=== PATIENT | female | born 1995 | race Caucasian/White ===

== ENCOUNTER 2025-01-25 17:37 | Emergency (ER) | payer OTHER, SELFPAY ==
[2025-01-25] VITALS (38 sets, daily range): BP systolic 94–119; BP diastolic 57–85; PULSE 73–125; RESP 11–21; TEMP 36.4; O2SAT 100
--- OUTSIDE RECORDS SUMMARY | 2025-01-25 17:39 | XMS_ITS | Encounter Summary ---
Author Organization [facility] Healthcare Address [address] [place] [address] Care Team Providers Care Engine Lathe Set Up Operator Name Role Phone Lynda Perez Unavailable Unavailable Lynda Perez Unavailable Unavailable Wild Avila MD Primary Care Provider [phone] Jessica Her Unavailable Unavailable Encounter Details Date Type Department Care Team (Late st Contact Info) Description 11/02/2020 [facility] Outreach [facility] Warm Hand Off Program [address] [place], [place] [phone] [place], [place] Social History Tobacco Use Types Packs/Day Years Used Date Smoking Tobacco: Every Day Cigarettes Smokeless Tobacco: Never Alcohol Use Standard Drinks/Week Comments Yes 0 (1 standard drink = 0.6 oz pur e alcohol) a [employer] AUDIT-C Answer Date Recorded Q1: How often do you have a drink containing alcohol? 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 Author MAT General Jessica Giraldo Note: Pt is scheduled with on 10/15/20 to receive vivitrol injection if criteria is met. Pt missed appointment on this date. Made contact 02/25/21. Improve your coping skills Lifestyle No Jessica Her Note: I am attending outpatient at [facility] and going to meetings. documented as of this encounter Visit Diagnoses Not on filedocumented in this encounter Care Teams Engine Lathe Set Up Operator Relationship Specialty Start Date End Date [place] [address] PCP - General Family Medicine 10/05/20 Lynda Perez Program Director [facility] 05/11/20 Lynda Perez Metal Reclamation Kettle Tender Addiction Medicine 06/23/20 Jessica Her Program Director [facility] 10/15/20 documented as of this encounter
--- OUTSIDE RECORDS SUMMARY | 2025-01-25 17:39 | XMS_ITS | Patient Health Record ---
Author Organization [facility] Address [address] [address] Care Team Providers Care Highway Research Engineer Name Role Phone Kareem Tuttle Unavailable [phone] Reason For Referral No Information Medications Medication SIG (Take, Route, Frequency, Duration) Notes Start Date End Date Status Naproxen 500 MG Oral Acti ve Fluticasone Propionate Diskus 50 MCG/ACT Inhalation *Reorder from [facility] for eRx and Interaction Alerts* Active traZODone HCl 100 MG Oral Active Buprenorphine HCl-Naloxone HCl 8-2 MG Sublingual Active Sertraline HCl 50 MG Oral Active traZODone HCl 150 MG Oral Active Sulfamethoxazole-Trim ethoprim 800-160 MG Oral Active Plan Of Treatment No Information
--- OUTSIDE RECORDS SUMMARY | 2025-01-25 17:39 | XMS_ITS | Clinical Summary ---
Author Organization [facility] Address [address] [place] [address] Care Team Providers Care Staff Command And Control Officer Name Role Phone Wild Avila MD Primary Care Provider [phone] Allergies No known active allergies Family History Medical History Relation Comments Diabetes Maternal Grandfather Thyroid Disease Mother Relation Status Comments Maternal Grandfather Mother Social History Tobacco Use Types Packs/Day Years Used Date Smoking Tobacco: Every Day Cigarettes Smokeless Tobacco: Never Tobacco Cessation:Ready to Q uit: Not Asked; Counseling Given: Not Answered Alcohol Use Standard Drinks/Week Comments Not Currently 0 (1 standard drink = 0.6 oz pur e alcohol) Comments No Sex and Gender Information Value Date Recorded Sex Assigned at Not on file Legal Sex Female 1:59 PM CDT Gender Identity Not on file Sexual Orientation Not on file Last Filed Vital Signs Vital Sign Reading Time Taken Comments Blood Pressure 112/76 10/25/2022 2:01 PM CDT Pulse 60 10/25/2022 2:01 PM CDT Temperature 36.9 C (98.5 F) 10/25/2022 2:01 PM CDT Respiratory Rate 16 10/25/2022 2:01 PM CDT Oxygen Saturation 97% 10/25/2022 2:01 PM CDT Inhaled Oxygen Concentration - - Weight 60 kg (132 lb 4.4 oz) 10/25/2022 2:01 PM CDT Height 165.1 cm (5' 5) 10/25/2022 2:01 PM CDT Body Mass Index 22.01 10/25/2022 2:01 PM CDT Plan of Treatment Health Maintenance Due Date Last Done Comments Cervical Cancer Screening Pap Smear (Age 30 to 64) Every 3 Years 1994 Annual Physical 1997 DTaP, Tdap and Td Vaccines (6 - Tdap) 09/23/2006 09/22/2006, 06/13/2001, 04/10/2001, Additional history exists Hepatitis C 2012 Pneumococcal Vaccine: Pediatrics (0 to 5 Years) and At-Risk Patients (6 to 49 Years) (1 of 2 - PCV) 2013 06/13/2001, 04/10/2001, 02/13/2001 HPV Vaccines (1 - 3-dose SCDM series) 2021 COVID-19 Vaccine ( - season) 2024 Cervical Cancer Screening Pap with HPV Testing (Age 30 to 64) Every 5 Years 2024 Cervical Cancer Screening with HPV 2024 Hepatitis B Vaccines Completed 04/10/2001, 07/07/1995, 01/16/1995, Additional history exists Meningococcal Vaccine Aged Out 02/22/2007 No alessia yoseph eligible based on patient's age to complete this topic Meningococcal B Vaccine Aged Out No l onger eligible based on patient's age to complete this topic RSV Immunizations Under 20 Months Aged Out No longer eligible based on patient's age to complete this topic Insurance NOHEMY Care Teams Staff Command And Control Officer Relationship Specialty Start Date End [place] [address] PCP - General FAMILY PRACTICE 10/25/22
--- OUTSIDE RECORDS SUMMARY | 2025-01-25 17:39 | XMS_ITS | Clinical Summary ---
Author Organization [facility] Address [address] [place] [address] Care Team Providers Care Service Captain Name Role Phone Lynda Perez Unavailable Unavailable Lynda Perez Unavailable Unavailable Wild Avila MD Primary Care Provider [phone] Jessica Her Unavailable Unavailable Allergies No known active allergies Medications gabapentin (NEURONTIN) 300 mg capsule TAKE 1 CAPSULE(300 MG) BY MOUTH THREE TIMES DAILY 90 capsule 2 3 Active hydrOXYzine (ATARAX) 25 mg tablet TAKE 1 TABLET(25 MG) BY MOUTH THREE TIMES DAILY 90 tablet 1 4 Active QUEtiapine (SEROquel) 100 mg tablet Take 1 tablet (100 mg total) by mouth nightly 90 tablet 3 4 Active QUEtiapine (SEROquel) 50 mg tablet Take 1 tablet (50 mg total) by mouth nightly 30 tablet 2 4 Active benztropine (COGENTIN) 1 mg tablet TAKE 1 TABLET(1 MG) BY MOUTH EVERY NIGHT 90 tablet 4 Active sertraline (ZOLOFT) 100 mg tablet Take 1 tablet (100 mg total) by mouth daily 90 tablet 1 5 Active Suboxone 8-[address] 1 Film under the tongue 2 (two) times a day for 15 days 30 Film 5 Active ondansetron (ZOFRAN) 4 mg tablet Take 1 tablet (4 mg total) by mouth every 8 (eight) hours as needed for nausea or vomiting 20 tablet 1 2 01/19/20 25 Discontinu ed(Therapy completed) Active Problems Problem Noted Date Diagnosed Date Polysubstance abuse 01/18/2025 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 Depression 05/29/2023 Assessment & Plan (12/29/2023 4:24 PM CDT): Stable, well controlled, patient reports no major depression, has multiple stressors Continue sertraline 25 mg daily, Seroquel 150 mg nightly Alcohol use 12/22/2020 Assessment & Plan (07/18/2024 12:51 PM ROLLED HAM LACER): Has been improving, decreased use, decreased ability to go out, has been drinking some, some limitations given availability of alcohol even [place]; continue to work on cessation Assessment & Plan (01/27/2022 4:47 PM CDT): Stable, improving; patient reports she has been drinking less alcohol; has been to mutual support meetings; currently cannot go due to COVID-19 infection Will continue to monitor encourage further support Assessment & Plan (01/12/2022 4:56 PM CDT): Improving; patient reports she is drinking less, mg morning checks, no longer has 1st morning drink Encouraged patient continue to work toward stool cessation Will continue Vivitrol for opioid use and alcohol use disorders Assessment & Plan (08/02/2021 4:41 PM ROLLED HAM LACER): Stable improving; patient reports that she is drinking less; now down to 1-2 drinks per day Continue gabapentin 300 mg t.i.d. Assessment & Plan (12/22/2020 1:29 PM CDT): High risk alcohol use; drinks 6-7 days per week; has some shakes in morning -continue to address alcohol use at future visits Recurrent major depressive disorder, in partial remission 10/19/2020 Assessment & Plan (07/18/2024 12:51 PM ROLLED HAM LACER): Patient reports anxiety and depression are present never fully goes away, has been worsening, and varies day-to-day Can increase sertraline to 100 mg daily, continue Seroquel 150 mg nightly Assessment & Plan (01/12/2022 4:57 PM CDT): Not well controlled, patient reports mood continues to be up and down Continue Lexapro 20 mg daily; hydroxyzine 25 mg p.r.n. for anxiety Encouraged patient to gauge [employer] for counseling Assessment & Plan (08/02/2021 4:41 PM ROLLED HAM LACER): Not well controlled, patient continues to have depression and mood changes Continue Lexapro 20 mg daily Assessment & Plan (11/11/2020 11:55 AM CDT): Stable, not well controlled but is improving Has recurrence stressors such as in the family, Patient to continue on Lexapro 10 mg at this time Assessment & Plan (10/19/2020 9:33 AM CDT): S son dysthymia, however no sense of hopelessness or suicidal thoughts Will continue Lexapro from previous Start trazodone at bedtime for sleep Chronic hepatitis C without hepatic coma 021 Moderate opioid use disorder 09/17/2019 Assessment & Plan (07/18/2024 12:51 PM ROLLED HAM LACER): Patient has change in environment, living [place] with boyfriend; has decreased symptoms when in [place], some difficulty when returns to the area she has friends and region Last use was around [place], prior had been sober for almost 2 months Has cravings when not on Suboxone Continue Suboxone 8 mg b.i.d. Assessment & Plan (12/29/2023 4:23 PM CDT): Stable, improving; patient reports had long duration sobriety; recently had mild relapse, last use was about 1 week ago Patient reports good relief with Suboxone Continue Suboxone 8 mg b.i.d.; encouraged patient to engage with peer literacy specialist or individual counseling to help with long-term treatment goals Assessment & Plan (01/27/2022 4:46 PM CDT): Stable, improving; patient reports no use of any opioids in over a month Continue naltrexone monthly injections Patient is due in approximately 2 weeks Encouraged patient to do to engage with counseling through peer literacy specialist Encouraged patient to engage with mutual support groups Assessment & Plan (01/12/2022 4:56 PM CDT): Able, improving; patient reports no use of fentanyl in the past 2 weeks Patient is interested giving Vivitrol injection today Provide Vivitrol today; encouraged patient to follow-up in 2 weeks for evaluation and response to therapy Assessment & Plan (08/02/2021 4:40 PM ROLLED HAM LACER): Not well control, continues to use opioids; last use approximately 48 hours ago Counseled patient that Vivitrol shot given at least 7 days after last opioid use in order to reduce risk of precipitated withdrawals Patient to schedule nursing visit mid next week for Vivitrol injection Assessment & Plan (03/23/2021 3:02 PM CDT): Stable, not well controlled Patient would like to continue with Vivitrol, has been using Vicodin other substances recently Discussed with patient other levels of care in order to better control her opioid in substance use disorders At this time patient is not ready to visit residential facilities Will continue to monitor encourage long-term changes for patient Assessment & Plan (12/22/2020 1:26 PM CDT): Patient is doing well, tolerating Vivitrol well; responds well -no use of opioids; has used cocaine and amphetamines since last visit Assessment & Plan (11/11/2020 11:55 AM CDT): Improving, not well controlled Patient is greatly reduced her recent use, however issues to few times in recent weeks Patient is going to NA meetings as well as IOP at [facility] Patient is instructed Vivitrol, will give tomorrow to allow patient does 7 days since last use of fentanyl Follow-up in 1 week to evaluate response to therapy as well as ensure no side effects from injection Assessment & Plan (10/19/2020 9:32 AM CDT): Stable, patient reports she has been trying not to use Had difficulty with boxes in the past, over used medications and would occasionally withdraw from medicine Patient also verses other substances including cocaine Xanax and better means as well as regular alcohol use Has history of 0 D's Patient is currently in IOP at [facility] Patient desires Adderall, will order Vivitrol medication today with plan to administer in 1 week Sinus tachycardia 09/17/2019 Assessment & Plan (08/02/2021 4:42 PM ROLLED HAM LACER): Continues to have episodes tachycardia, palpitations as well as feeling short of breath Today heart rate is 122 Unclear if due to acute withdrawal versus of cardiac arrhythmia Will follow-up in 2 weeks to evaluate heart weight in heart rhythm with patient is no longer actively withdrawing Fatty liver Elevated LFTs Resolved Problems Problem Noted Date Diagnosed Date Resolved Date Opiate withdrawal 06/29/2023 12/29/2023 Leucocytosis 06/29/2023 12/29/2023 Alcohol dependence with withdrawal 05/29/2023 12/29/2023 Opioid dependence with withdrawal 05/01/2023 12/29/2023 COVID-19 01/25/2022 12/29/2023 Sepsis due to Escherichia co li without acute organ dysfunction 11/18/2021 12/29/2023 Sepsis 01/21/2021 12/29/2023 Hypokalemia 01/21/2021 12/29/2023 Polysubstance abuse 01/21/2021 12/29/19 Assessment & Plan (11/25/2022 4:11 PM CDT): Patient continues to have difficulties with substance use disorder; recently completed inpatient treatment, was on Suboxone; would like to transition back to Vivitrol Encouraged patient to discontinue Suboxone x7 days before initiating Vivitrol Encouraged patient to engage with peer literacy specialist for individual counseling Assessment & Plan (01/12/2022 4:57 PM CDT): 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 continues to use methamphetamine; patient is engaging with outpatient IOP a [facility] Encouraged patient to engage with [employer]ER[employer]IVER as well as peer literacy specialist to help with further support and long-term strategies Pyelonephritis 01/20/2021 12/29/2023 Assessment & Plan (01/27/2022 4:48 PM CDT): Patient recently seen in hospital for pyelonephritis; given 3 doses of ceftriaxone upon hospital, left AMA patient had previous episode of pyelonephritis nephritis and October 2021 Refer to urology for recurrent pyelonephritis Start Omnicef 300 mg b.i.d. to complete 7 day course of treatment SIRS (systemic inflammatory response syndrome) 09/17/2019 10/19/2020 Elevated d-dimer 09/17/2019 12/29/2023 Transaminitis 12/29/2023 Encounters Date Type Department Care Team Description 01/19/2025 Documentation [facility] Warm Hand Off Program [address], [place] [phone] Kailey Caro 01/18/2025 2:22 PM CDT - 01/20/2025 4:27 PM CDT Hospital Encounter [facility] IMU [address] [place] [address] Louis Timmons MD Sargsyan, Narine, MD Fasick, Victoria Rose, Polysubstance abuse (HCC) (Primary Dx); Alcohol use Discharge Disposition: Left Against Medical Advice 01/16/2025 11:30 AM CDT Hospital Encounter [facility] Medical Care [address] [place] [address] Paula Morris MD 01/13/2025 [facility] Initial Eligibility [facility] Warm Hand Off Program [address], [place] [phone] Milton Randall from Last 3 Months Immunizations Immunization Administration Dates Next Due DTaP 06/13/2001, 1,02/13/2001,12/21,04/19/1996,07/07/1995,04/12/1995 ,02/14/1995 Hep A, Adult 12/24/2008 Hep A, Pediatric 12/24/2008 Hep B / HiB 04/10/2001 Hep B, Adolescent or Pediatric 07/07/1995,1994,1994 HiB 02/13/2001 Hib (PRP-OMP) 04/19/1996 IPV 06/13/2001, 1,02/13/2001,12/21,07/07/1995,04/12/1995,02/14/1995 Influenza, Trivalent, IM (MDV) 04/03/2005 Influenza, Unspecified 07/16/2024(Deferr ed: Patient Refused),09/11/2023(Deferred: Patient Refused),06/12/2023(Deferred: Patient Refused),04/12/2023(Deferred: Patient Refused),04/11/2023(Deferred: Patient Refused),04/02/2022(Deferred: Patient Refused),07/30/2021(Deferred: Patient Refused),04/02/2021(Deferred: Patient Refused),07/03/2020(Deferred: Patient Refused),07/03/2020(Deferred: Patient Refused),07/03/2020(Deferred: Patient Refused),07/03/2020(Deferred: Patient Refused),07/03/2020(Deferred: Patient Refused),07/03/2020(Deferred: Patient Refused),07/03/2020(Deferred: Patient Refused),07/03/2019(Deferred: Patient Refused),07/03/2019(Deferred: Patient Refused),07/03/2019(Deferred: Patient Refused),07/03/2019(Deferred: Patient Refused),07/03/2019(Deferred: Patient Refused),07/03/2019(Deferred: Patient Refused) MMR 11/25/2016,12/21/1998,12/19/1995 Meningococcal MCV4P (Menactra) 02/22/2007 Meningococcal Polysaccharide (Menomune) 02/22/2007 PPD TEST 12/24/2008,02/13/2001 Pneumococcal Conjugate 7-Valent 06/13/2001,04/10,02/13/2001 Rho (D) Immune Globulin, IV or IM 11/25/2016,04/2017,09/21/2016 Td, adsorbed 09/22/2006 Varicella 12/24/2008,02/22/2007 Surgical History Surgery Date Site/Laterality Comments TONSILLECTOMY Tonsillectomy SECTION 10/31/2016 - 11/30/2016 OTHER SURGICAL HISTORY 07/03/2016 - 07/02/2017 had a laproscopy to check her uterus Medical History Medical History Date Comments Hx Other Medical 1997 tubes in ears; Comments: [facility] 10/07/2014 - Hx Other Medical 1998 tonsillectomy; Comments: [facility] 10/07/2014 - Hx Other Medical 1999 tympanoplasty; Comments: [facility] 10/07/2014 - Fibroid uterus SIRS (systemic inflammatory response syndrome) ([facility]) 09/17/2019 Family History Medical History Relation Name Comments No Known Problems Brother No Known Problems Father Graves' disease Mother daly quiroz Hypertension Mother daly quiroz Breast cancer Mother's Sister Ovarian cancer Paternal Grandmother No Known Problems Sister Relation Name Status Comments Brother Alive Father Alive Mother daly quiroz Alive Mother's Sister Paternal Grandmother Sister Alive Social History Tobacco Use Types Packs/Day Years Used Date Smoking Tobacco: Every Day Cigarettes 0.9 10.7 Started: 05/2014 Smokeless Tobacco: Never Tobacco Cessation:Ready to Q uit: Not Asked; Counseling Given: Not Answered Alcohol Use Standard Drinks/Week Comments Yes 0 (1 standard drink = 0.6 oz pur e alcohol) a [employer] [facility] Utilities Answer Date Recorded In the past 12 months has [employer], gas, oil, or water [employer] threatened to shut off services in your home? No 06/30/2023 Social Connection and Isolation Panel [NHANES] A nswer Date Recorded In a typical week, how many times do you talk on the phone with family, friends, or neighbors? Three times a week 06/30/2023 How often do you get togethe r with friends or relatives? Three times a week 06/30/2023 How often do you attend chur ch or cheondoism services? Never 06/30/2023 Do you belong to any clubs o r organizations such as episcopal groups, unions, fraternal or athletic groups, or school groups? No 06/30/2023 How often do you attend meet ings of the clubs or organizations you belong to? Never 06/30/2023 Are you , , di vorced, , never , or living with a partner? Never 06/30/2023 AUDIT-C Answer Date Recorded Q1: How often do you have a drink containing alcohol? 4 or more times a week 06/29/2023 Q2: How many drinks containi ng alcohol do you have on a typical day when you are drinking? 7 to 9 Q3: How often do you have si x or more drinks on one occasion? Daily or almost daily 06/29/2023 Overall Financial Resource Strain (CARDIA) Answe r Date Recorded How hard is it for you to pa y for the very basics like food, housing, medical care, and heating? Very hard 06/30/2023 PHQ-2 Answer Date Recorded PHQ-2 Total Score (If total score is 3 or more points, staff should administer the PHQ-9) 0 12/29/2023 Hunger Vital Sign Answer Date Recorded Within the past 12 months, y ou worried that your food would run out before you got the money to buy more. Never true 06/30/20 23 Within the past 12 months, t he food you bought just didn't last and you didn't have money to get more. Never true 06/30/2023 PRAPARE - Transportation Answer Date Re corded In the past 12 months, has l ack of transportation kept you from medical appointments or from getting medications? Yes 06/03 In the past 12 months, has l ack of transportation kept you from meetings, work, or from getting things needed for daily living? Yes 06/30/2023 Housing Stability Vital Sign Answer Richie e Recorded In the last 12 months, was t here a time when you were not able to pay the mortgage or rent on time? Yes 06/30/2023 In the last 12 months, how many places have you lived? 2 06/30/2023 In the last 12 months, was t here a time when you did not have a steady place to sleep or slept in a fdc (including now)? Yes 06/30/2023 Personal Safety Answer Date Recorded Have you ever been in or are you currently in a harmful physical or emotional relationship or is someone making you feel afraid or unsafe? Denies 01/18/2025 Education Answer Date Recorded What is the highest level of school you have completed or the highest degree you have received? Some college, no degree 06/30/2023 Comments No Sex and Gender Information Value Date Recorded Sex Assigned at Not on file Legal Sex Female 3:19 PM ROLLED HAM LACER Gender Identity Female 11/09/2020 10:56 AM CDT Sexual Orientation Straight 11/09/2020 10 :56 AM CDT Obstetrics History Para Term AB IAB SAB Ectopic Multiple Livin g Live Births 1 Date Outcome GA Total Labor Labor/2nd/3rd Weight Sex Type Anes PTL Allyson A1 A5 Name Clin Last Filed Vital Signs Vital Sign Reading Time Taken Comments Blood Pressure 105/64 01/20/2025 12:20 PM CDT Pulse 72 01/20/2025 12:20 PM CDT Temperature 36.2 C (97.2 F) 01/20/2025 12:20 PM CDT Respiratory Rate 16 01/20/2025 12:20 PM CDT Oxygen Saturation 97% 01/20/2025 12:20 PM CDT Inhaled Oxygen Concentration - - Weight 54.8 kg (120 lb 13 oz) 01/18/2025 9:20 PM CDT Height 165.1 cm (5' 5) 01/18/2025 9:20 PM CDT Body Mass Index 20.1 01/18/2025 9:20 PM CDT Plan of Treatment Health Maintenance Due Date Last Done Comments Cervical Cancer Screening 1994 Pneumococcal vaccine <65 (2 of 2 - PPSV23) 08/08/2001 06/13/2001, 04/10/2001, 02/13/2001 DTaP/Tdap/Td Vaccine (6 - Tdap) 09/23/2006 09/22/2006, 06/13/2001, 04/10/2001, Additional history exists Regular Well Visit/Exam 18-64 2012 HPV Vaccines (1 - 3-dose SCD M series) 2021 Depression Screening 12/28/2024 12/29/2023, 11/04/2022, 01/27/2022, Additional history exists Influenza Vaccine (#1) 2025 04/03/2005 Varicella Vaccines Completed 12/24/2008, 02/22/2007 Hepatitis C Screening Completed 10/10/2022 , 10/05/2020, 09/16/2019 Goals Goal Patient Goal Type Associated Problems Recent Progress Patient-Stated? Author Jessica Reynolds Note: Pt is scheduled with on 10/15/20 to receive vivitrol injection if criteria is met. Pt missed appointment on this date. Made contact 02/25/21. Improve your coping skills Lifestyle Jessica Giraldo Note: I am attending outpatient at [facility] and going to meetings. Procedures Procedure Name Priority Date/Time Associated Diagnosis Comments EGFR STAT 01/19/2025 7:49 AM CDT COMPREHENSIVE METABOLIC PANEL STAT 01/19/2025 7:49 AM CDT DIFFERENTIAL AUTO Routine 01/19/2025 6:3 2 AM CDT CBC WITH AUTO DIFFERENTIAL Routine 01/19/2025 6:32 AM CDT ETHANOL STAT 01/18/2025 6:38 PM CDT EGFR STAT 01/18/2025 3:07 PM CDT DIFFERENTIAL AUTO STAT 01/18/2025 3:0 7 PM CDT COMPREHENSIVE METABOLIC PANEL STAT 01/18/2025 3:07 PM CDT CBC WITH AUTO DIFFERENTIAL STAT 01/18/2025 3:07 PM CDT DRUGS OF ABUSE SCREEN, URINE WITHOUT CONFIRMATION STAT 01/18/2025 2:45 PM CDT HEPATITIS PANEL, ACUTE Routine 8:33 AM CDT from Last 3 Months or Most Recently Relevant to Health Maintenance Results * eGFR (01/19/2025 7:49 AM CDT) eGFR >90 >=60 mL/min/1. 73 m2 Comment: Interpretive Data Reference Interval Normal >/= 90 mL/min/1.73m2 Mildly decreased* 60 - 89 mL/min/1.73m2 Mildly to moderately decreased 45 - 59 mL/min/1.73m2 Moderately to severely decreased 30 - 44 mL/min/1.73m2 Severely decreased 15 - 29 mL/min/1.73m2 Kidney Failure < 15 mL/min/1.73m2 *Relative to young adult level Estimated glomerular filtration rate is determined by the 2020 CKD-EPI equation recommended by the National Kidney Foundation (A Unifying Approach to GFR Estimation: Recommendations of the NKF-ASK Task Force on Reassessing the Inclusion of Race in Diagnosing Kidney Disease, JASN 2020). The CKD-EPI equation should not be used for patients with unstable renal function and has not been validated in children and those over 70. Current interpretive data was last reviewed 2021. Blood 01/19/2025 7:49 AM CDT 01/19/2025 7:53 AM CDT Kelin Costello DO LAB BLOOD ORDERABLES Fin al Result [facility] ([place]) [facility] [place] [address] * (ABNORMAL) Comprehensive metabolic panel (01/19/2025 7:49 AM CDT) Sodium 131(L) 135 - 145 mmol/L [facility] ([place]) Potassium, pl 3.6 3.3 - 4.9 mmol/L [facility] Chloride 98 97 - 110 mmol/L [facility]) CO2 23 22 - 32 mmol/L [facility] ([place]) Anion gap 13 2 - 15 mmol/L [facility]) BUN 9 6 - 25 mg/dL [facility]) Creatinine 0.70 0.60 - 1.10 mg/dL [facility]) Glucose 102 70 - 199 mg/dL [facility] ([place]) Comment: Interpretive Data Fasting glucose >/= 126 mg/dl is diagnostic for diabetes. Fasting is defined as no caloric intake for at least 8 hours. Fasting glucose between 100 mg/dl to 125 mg/dl is diagnostic of prediabetes. In a patient with classic symptoms of hyperglycemia or hyperglycemic crisis, a random glucose >/= 200 mg/dl is diagnostic for diabetes. In the absence of unequivocal hyperglycemia, results should be confirmed by repeat testing. The classification and Diagnosis of Diabetes Diabetes Care 2021; 46: S19-S40. Current interpretive data was last revised 2022. Calcium 8.6 8.5 - 10.3 mg/dL [facility] ([place]) Bilirubin, total 0.6 0.1 - 1.2 mg/dL [facility] ([place]) Protein, pl 6.9 6.5 - 8.5 g/dL [facility] ([place]) Albumin 3.7 3.5 - 5.0 g/dL [facility] ([place]) Alk phos 63 40 - 130 Units/L [facility] ([place]) ALT 76(H) 7 - 45 Units/L [facility] ([place]) AST 54(H) 10 - 45 Units/L [facility] ([place]) Comment:HEMOLYZED; Blood 01/19/2025 7:49 AM CDT 01/19/2025 7:53 AM CDT us Kelin Costello DO LAB BLOOD ORDERABLES Fin al Result [facility] ([place]) [facility] Department of Laboratories [place], [place] [id number] * (ABNORMAL) Differential, auto (01/19/2025 6:32 AM CDT) Neutrophil abs 2.59 1.50 - 6.50 K/cumm Imm gran abs 0.01 0.00 - 0.10 K/cumm [facility] ([place]) Lymphocyte abs 2.96 0.80 - 3.30 K/cumm [facility] ([place]) Monocyte abs 0.46 0.20 - 0.80 K/cumm [facility] ([place]) Eosinophil abs 0.63(H) 0.00 - 0.50 K/cumm [facility] ([place]) Basophil abs 0.06 0.00 - 0.10 K/cumm [facility] ([place]) Neutrophil pct 38.6 % [facility] ([place]) Comment: Interpretive Data Percent cell count reference ranges are not reported, since discordance with absolute values may lead to misinterpretation of CBC data. Current Interpretive Data was last revised on 2017. Imm gran pct 0.1 % [facility] ([place]) Comment: Interpretive Data Percent cell count reference ranges are not reported, since discordance with absolute values may lead to misinterpretation of CBC data. Current Interpretive Data was last revised on 2017. Lymphocyte pct 44.1 % [facility] ([place]) Comment: Interpretive Data Percent cell count reference ranges are not reported, since discordance with absolute values may lead to misinterpretation of CBC data. Current Interpretive Data was last revised on 2017. Monocyte pct 6.9 % [facility] ([place]) Comment: Interpretive Data Percent cell count reference ranges are not reported, since discordance with absolute values may lead to misinterpretation of CBC data. Current Interpretive Data was last revised on 2017. Eosinophil pct 9.4 % [facility] ([place]) Comment: Interpretive Data Percent cell count reference ranges are not reported, since discordance with absolute values may lead to misinterpretation of CBC data. Current Interpretive Data was last revised on 2017. Basophil pct 0.9 % [facility] ([place]) Comment: Interpretive Data Percent cell count reference ranges are not reported, since discordance with absolute values may lead to misinterpretation of CBC data. Current Interpretive Data was last revised on 2017. Blood 01/19/2025 6:32 AM CDT 01/19/2025 6:41 AM CDT us Kalie BATISTA LAB BLOOD ORDERABLES Final Resu lt [facility] ([place]) 1 [facility] [place] [address] * CBC with auto differential (01/19/2025 6:32 AM CDT) WBC 6.71 3.80 - 9.90 K/cumm Hgb 12.7 11.9 - 15.5 g/dL [facility] ([place]) Hct 38.0 35.6 - 45.5 % [facility] ([place]) Plt 210 150 - 400 K/cumm [facility] ([place]) MPV 9.9 9.1 - 12.3 fL [facility] ([place]) RBC 4.29 3.90 - 5.20 M/cumm [facility] ([place]) MCV 88.6 81.3 - 96.4 fL [facility] ([place]) MCH 29.6 27.1 - 33.3 pg [facility] ([place]) MCHC 33.4 32.3 - 35.7 g/dL [facility] ([place]) RDW CV 13.0 11.1 - 14.9 % [facility] ([place]) RDW SD 42.2 35.7 - 48.1 fL [facility] NRBC abs 0.00 0.00 - 0.01 K/cumm [facility] Blood 01/19/2025 6:32 AM CDT 01/19/2025 6:41 AM CDT us Louis Timmons MD LAB BLOOD ORDERABLES Final Resu lt [facility] ([place]) 1 [facility] [place] [address] * Ethanol (01/18/2025 6:38 PM CDT) Ethanol <10 <=10 mg/dL [facility] Comment: Interpretive Data Legal limit of intoxication > or = 80 mg/dL Levels > or = 400 mg/dL are potentially TOXIC. Current interpretive data was last revised on 2018. Blood 01/18/2025 6:38 PM CDT 01/18/2025 6:42 PM CDT us Kalie BATISTA LAB BLOOD ORDERABLES Final Resu lt [facility] ([place]) 1 [facility] [place] [address] * eGFR (01/18/2025 3:07 PM CDT) Pathologist [facility] eGFR >90 >=60 mL/min/1. 73 m2 Comment: Interpretive Data Reference Interval Normal >/= 90 mL/min/1.73m2 Mildly decreased* 60 - 89 mL/min/1.73m2 Mildly to moderately decreased 45 - 59 mL/min/1.73m2 Moderately to severely decreased 30 - 44 mL/min/1.73m2 Severely decreased 15 - 29 mL/min/1.73m2 Kidney Failure < 15 mL/min/1.73m2 *Relative to young adult level Estimated glomerular filtration rate is determined by the 2020 CKD-EPI equation recommended by the National [employer] (A Unifying Approach to GFR Estimation: Recommendations of the NKF-ASK Task Force on Reassessing the Inclusion of Race in Diagnosing Kidney Disease, JASN 2020). The CKD-EPI equation should not be used for patients with unstable renal function and has not been validated in children and those over 70. Current interpretive data was last reviewed 2021. Blood 01/18/2025 3:07 PM CDT 01/18/2025 3:09 PM CDT us Kalie BATISTA LAB BLOOD ORDERABLES Final Resu lt [facility] ([place]) 1 [facility] [place] [address] * (ABNORMAL) Differential, auto (01/18/2025 3:07 PM CDT) Pathologist [facility] Neutrophil abs 9.35(H) 1.50 - 6.50 K/cumm Imm gran abs 0.03 0.00 - 0.10 K/cumm [facility] Lymphocyte abs 1.90 0.80 - 3.30 K/cumm [facility]) Monocyte abs 0.61 0.20 - 0.80 K/cumm [facility]) Eosinophil abs 0.32 0.00 - 0.50 K/cumm [facility]) Basophil abs 0.05 0.00 - 0.10 K/cumm [facility] Neutrophil pct 76.3 % [facility] Comment: Interpretive Data Percent cell count reference ranges are not reported, since discordance with absolute values may lead to misinterpretation of CBC data. Current Interpretive Data was last revised on 2017. Imm gran pct 0.2 % [facility] Comment: Interpretive Data Percent cell count reference ranges are not reported, since discordance with absolute values may lead to misinterpretation of CBC data. Current Interpretive Data was last revised on 2017. Lymphocyte pct 15.5 % [facility] Comment: Interpretive Data Percent cell count reference ranges are not reported, since discordance with absolute values may lead to misinterpretation of CBC data. Current Interpretive Data was last revised on 2017. Monocyte pct 5.0 % [facility] Comment: Interpretive Data Percent cell count reference ranges are not reported, since discordance with absolute values may lead to misinterpretation of CBC data. Current Interpretive Data was last revised on 2017. Eosinophil pct 2.6 % [facility] Comment: Interpretive Data Percent cell count reference ranges are not reported, since discordance with absolute values may lead to misinterpretation of CBC data. Current Interpretive Data was last revised on 2017. Basophil pct 0.4 % [facility] Comment: Interpretive Data Percent cell count reference ranges are not reported, since discordance with absolute values may lead to misinterpretation of CBC data. Current Interpretive Data was last revised on 2017. Blood 01/18/2025 3:07 PM CDT 01/18/2025 3:09 PM CDT us Kalie BATISTA LAB BLOOD ORDERABLES Final Resu lt [facility] ([place]) 1 [facility] [place] [address] * (ABNORMAL) CBC with auto differential (01/18/2025 3:07 PM CDT) WBC 12.26(H) 3.80 - 9.90 K/cumm Hgb 13.5 11.9 - 15.5 g/dL [facility] Hct 39.3 35.6 - 45.5 % [facility] Plt 247 150 - 400 K/cumm [facility] MPV 9.5 9.1 - 12.3 fL [facility] RBC 4.48 3.90 - 5.20 M/cumm [facility] MCV 87.7 81.3 - 96.4 fL [facility] MCH 30.1 27.1 - 33.3 pg [facility] MCHC 34.4 32.3 - 35.7 g/dL [facility] RDW CV 13.0 11.1 - 14.9 % [facility] RDW SD 42.0 35.7 - 48.1 fL [facility] NRBC abs 0.00 0.00 - 0.01 K/cumm [facility] Blood 01/18/2025 3:07 PM CDT 01/18/2025 3:09 PM CDT us Kalie BATISTA LAB BLOOD ORDERABLES [facility] [place] [address] * (ABNORMAL) Comprehensive metabolic panel (01/18/2025 3:07 PM CDT) Sodium 141 135 - 145 mmol/L [facility] Potassium, pl 3.9 3.3 - 4.9 mmol/L [facility] Chloride 103 97 - 110 mmol/L [facility] CO2 29 22 - 32 mmol/L [facility] Anion gap 9 2 - 15 mmol/L [facility] BUN 11 6 - 25 mg/dL [facility] Creatinine 0.75 0.60 - 1.10 mg/dL [facility] Glucose 94 70 - 199 mg/dL [facility] Comment: Interpretive Data Fasting glucose >/= 126 mg/dl is diagnostic for diabetes. Fasting is defined as no caloric intake for at least 8 hours. Fasting glucose between 100 mg/dl to 125 mg/dl is diagnostic of prediabetes. In a patient with classic symptoms of hyperglycemia or hyperglycemic crisis, a random glucose >/= 200 mg/dl is diagnostic for diabetes. In the absence of unequivocal hyperglycemia, results should be confirmed by repeat testing. The classification and Diagnosis of Diabetes Diabetes Care 202; 46: S19-S40. Current interpretive data was last revised 2022. Calcium 8.9 8.5 - 10.3 mg/dL [facility]) Bilirubin, total 0.6 0.1 - 1.2 mg/dL [facility]) Protein, pl 7.6 6.5 - 8.5 g/dL [facility]) Albumin 4.2 3.5 - 5.0 g/dL [facility]) Alk phos 61 40 - 130 Units/L [facility] ALT 93(H) 7 - 45 Units/L [facility] AST 59(H) 10 - 45 Units/L [facility] Blood 01/18/2025 3:07 PM CDT 01/18/2025 3:09 PM CDT us Kalie BATISTA LAB BLOOD ORDERABLES Final Resu lt [facility] [place] [address] * (ABNORMAL) Drugs of Abuse Screen, Urine without Confirmation (01/18/2025 2:45 PM CDT) Amphetamine, ur Screen Positive, presumptive (A) CutOff 500ng/mL [facility] Comment: Interpretive Data - Amphetamines: Samples containing greater than 500 ng/mL d-methamphetamine or other cross-reacting amphetamine compounds are reported as positive. Amphetamine immunoassays are subject to significant false positive rates due to cross-reactivity of non-amphetamine drugs. Confirmatory testing required for definitive results. Current Interpretive Data was last reviewed 2023. Barbiturates, ur Not Detected CutOff 200ng/mL [facility] Comment: Interpretive Data - Barbiturates: Samples containing greater than 200 ng/mL secobarbital or other cross-reacting barbiturate compounds are reported as positive. False positive and false negative results are possible. Confirmatory testing required for definitive results. Current Interpretive Data was last reviewed 2023. Benzodiazepines, ur Screen Positive, presumptive (A) CutOff 100ng/mL [facility] Comment: Interpretive Data - Benzodiazepines: Samples containing greater than 100 ng/mL nordiazepam or other cross-reacting compounds are reported as positive. False positive and false negative results are possible. Confirmatory testing required for definitive results. Current Interpretive Data was last reviewed 2023. Cannabinoids, ur Screen Positive, presumptive (A) CutOff 50 ng/mL [facility] Comment: Interpretive Data - Cannabinoids: Samples containing greater than 50 ng/mL delta-9 THC -COOH or other cross- reacting compounds are reported as positive. False positive and false negative results are possible. Confirmatory testing required for definitive results. Current Interpretive Data was last reviewed 2023. Cocaine, ur Screen Positive, presumptive (A) CutOff 150ng/mL [facility] Comment: Interpretive Data - Cocaine: Samples containing greater than 150 ng/mL benzoylecgonine or other cross- reacting compounds are reported as positive. False positive and false negative results are possible. Confirmatory testing required for definitive results. Current Interpretive Data was last reviewed 2023. Fentanyl, Ur Screen Positive, presumptive (A) CutOff 5 ng/mL [facility] Comment: Interpretive Data - Fentanyl: Samples containing greater than 5 ng/mL norfentanyl, fentanyl, or other cross-reacting fentanyl compounds are reported as positive. False positive and false negative results are possible. Confirmatory testing required for definitive results. Current Interpretive Data was last reviewed 2023. Methadone, ur Not Detected CutOff 300ng/mL [facility] Comment: Interpretive Data - Methadone: Samples containing greater than 300 ng/mL d,l-methadone or other cross-reacting compounds are reported as positive. False positive and false negative results are possible. Confirmatory testing required for definitive results. Current Interpretive Data was last reviewed 2023. Opiates, ur Not Detected CutOff 300ng/mL [facility] ([facility] Comment: Interpretive Data - Opiates: Samples containing greater than 300 ng/mL morphine or other cross-reacting compounds are reported as positive. False positive and false negative results are possible. Confirmatory testing required for definitive results. Current Interpretive Data was last reviewed 2023. Oxycodone, ur Not Detected CutOff 100ng/mL [facility] ([place]) Comment: Interpretive Data - Oxycodone: Samples containing greater than 100 ng/mL oxycodone or other cross-reacting compounds are reported as positive. False positive and false negative results are possible. Confirmatory testing required for definitive results. Current Interpretive Data was last reviewed 2023. Phencyclidine, ur Not Detected CutOff 25 ng/mL [facility] ([place]) Comment: Interpretive Data - Phencyclidine: Samples containing greater than 25 ng/mL phencyclidine or other cross-reacting compounds are reported as positive. False positive and false negative results are possible. Confirmatory testing required for definitive results. Current Interpretive Data was last reviewed 2023. Urine Creatinine 369 mg/dL [facility] ([place]) Comment: Interpretive Data Urine Creatinine: < 10 mg/dL is extremely dilute = or > 10 but < 20 mg/dL is dilute = or > 20 mg/dL is normal Current Interpretive Data was last revised on 2017. Urine 01/18/2025 2:45 PM CDT 01/18/2025 6:49 PM CDT Narrative [facility] - 01/18/2025 7:13 PM CDT Drug of Abuse screening is performed by immunoassay for medical purposes only. This is not to be used for Pain Management purposes. us Kalie BATISTA LAB URINE ORDERABLES Final Resu lt [facility] ([place]) 1 [facility] [place] [address] * (ABNORMAL) Hepatitis panel, acute (10/10/2022 8:33 AM CDT) Hep A IgM Nonreactive Nonreactive [facility] Comment: Interpretive Data: If Hep A IgM Ab is reported as Equivocal, a new sample should be drawn in two weeks for testing. Current interpretive data was last revised on 19. Hep B core IgM Nonreactive Nonreactive [facility] Comment: Interpretive Data If HepB Core IgM Ab is reported as Equivocal, a new sample should be drawn in two weeks for testing. Current interpretive data was last revised on 19. Hep C Ab Reactive(A) Nonreactive [facility] Comment: Interpretive Data Nonreactive: Antibodies to HCV not detected. Does NOT exclude the possibility of recent exposure to HCV. Equivocal: Equivocal for HCV antibodies. Supplemental molecular testing will be automatically performed to determine infection status in accordance with current CDC screening recommendations. Reactive: Positive for HCV antibodies. This may represent current or past HCV infection. Supplemental molecular testing will be automatically performed to determine current infection status in accordance with current CDC screening recommendations. Interpretive data was last revised on 2019. HepBsAg Nonreactive Nonreactive [facility] Blood 10/10/2022 8:33 AM CDT 10/10/2022 12:24 PM CDT Vale Perez MD LAB MICROBIOLOGY - GENERAL ORDER GABBY Final Result [facility] [address] [facility] [place] [address] from Last 3 Months or Most Recently Relevant to Health Maintenance Insurance [facility] Member Subscriber Plan / Payer (Ef fective 2018-Present) Name:Tiarra Denny Relation to Subscriber:Self Name:TIARRA DENNY Payer ID:[id number] (NAIC) Type:MANAGED CARE OTHER Address: [address] [facility] Advance Directives For more information, please contact: [phone] * Full Code (Latest Code Status on File) Date Activated Date Inactivated Comments 01/19/2025 2:16 AM 01/20/2025 8:32 PM * Full Code Date Activated Date Inactivated Comments 06/29/2023 11:13 PM 07/02/2023 2:45 PM * Full Code Date Activated Date Inactivated Comments 05/01/2023 1:18 PM 05/04/2023 10:18 PM * Full Code Date Activated Date Inactivated Comments 01/21/2021 12:17 AM 01/24/2021 5:38 PM * Full Code Date Activated Date Inactivated Comments 09/16/2019 11:48 PM 09/19/2019 9:32 PM Care Teams Service Captain Relationship Specialty Start Date End Date [place] [address] PCP - General Family Medicine 10/05/20 Lynda Perez Guest Specialist Addiction Medicine 05/11/20 Lynda Perez Tugboat Operator Addiction Medicine 06/23/20 Jessica Her Guest Specialist Addiction Medicine 10/15/20
--- OUTSIDE RECORDS SUMMARY | 2025-01-25 17:39 | XMS_ITS | Patient Health Record ---
Author Organization [facility] Address [address] [place] [address] Care Team Providers Care Eyewear Manufacturing Tech Name Role Phone Traci Leal Primary Care Provider Candace Andrés Unavailable [phone] Butch Christy Unavailable [phone] RinMera ha Unavailable [phone] Allergies No Known Allergies Results Component Value Reference Range Notes 14 Panel Urine Drug Screen Reviewed date:01/24/2025 09:41:57 AM Interpretation: Performing Lab: Notes/Report: THC POS SARAY neg MOP (OPI) neg AMP POS MET POS BAR neg BZO POS MDMA neg MTD neg OXY neg PCP neg BUP ne TCA neg FTY POS Breathalyzer Reviewed date:01/24/2025 01:24:46 PM Interpretation: Performing Lab: Notes/Report: ADOLPH 0.000 Reason For Referral No Information Medications Medication SIG (Take, Route, Frequency, Duration) Notes Start Date End Date Status Zoloft 25 MG 1 tablet Orally Once a day; Duration: 30 days 04/04/2023 Active hydrOXYzine HCl 25 MG 1 tablet as needed Orally every 8 hrs; Duration: 30 days Active Gabapentin 300 MG 1 capsule Orally twi ce a day; Duration: 30 days Active Vivitrol 380 MG as directed Intramuscular Not-Taking SEROquel 200 MG 1 tablet at bedtime Orally Once a day; Duration: 30 days Active cloNIDine HCl 0.1 MG 1 tablet Orally fou r times a day Not-Taking Gabapentin 600 MG 1 tablet Orally at bedtime; Duration: 4 days 01/24/2025 Active Gabapentin 300 MG 1 capsule Orally 3 times a day; Duration: 4 days 01/24/2025 Active Folic Acid 1 MG 1 tablet Orally Once a day; Duration: 14 days 01/24/2025 Active Multi Vitamin - 1 tablet Orally Once a day; Duration: 30 days 01/24/2025 Active Nicotine Polacrilex 4 MG Chew 1 piece as needed for nicotine cravings Mouth/Throat up to every hour (max of 20 pieces per day); Duration: 7 days 01/24/2025 Active Nicotine 21 MG/24HR 1 patch to skin. Transdermal Once a day, removing at bedtime; Duration: 28 days 01/24/2025 Active Prochlorperazine Maleate 10 MG 1 tablet as needed Orally every 6 hours As needed 01/24/2025 Active Melatonin 5 MG 1 tablet at bedtime as needed Orally Once a day; Duration: 30 days 01/24/2025 Active Thiamine HCl 100 MG 1 tablet Orally Once a day; Duration: 14 days 01/24/2025 Active hydrOXYzine Pamoate 25 MG 1-2 capsules O rally every 4 hours as needed for anxiety, agitation, or inability to sleep. Do not give within 4 hours of diphenhydramine.; Duration: 30 days 01/24/2025 Active Social History Sex Assigned At : Social History Observation Description Sex Assigned At Female PRAPARE Question Answer Notes What is your current housing situation? I have h ousing Are you worried about losing your housing? Yes What is the highest level of school that you have finished? 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 Check all that apply Utilities,Phone Has lack of transportation k ept you from medical appointments, meetings, work or from getting things needed for daily living? Yes, it has kept me from medical appointments or from getting my medications How often do you see or talk to people that you care about and feel close to? (For example: talking to friends on the phone, visiting friends or family, going to pentecostal or club meetings) More than 5 times a week How stressed are you? Stress is when someone feels tense, nervous, anxious, or can\t sleep at night because their mind is troubled Quite a bit In the past year have you sp ent more than 2 nights in a row in a senior living, fpc, penitentiary center, or juvenile correctional facility? No Are you a refugee? No What country are you from? [place] Do you feel physically and e motionally safe where you currently live? Yes In the past year, have you b een afraid of your partner or ex-partner? No PRAPARE Score: 8 Problems Problem Type SNOMED Code ICD Code Onset Dates Problem Status W/U Status Risk Notes Problem Tobacco user (455987036) Nicotine dependence, unspecified, uncomplicated (F17.200) Active confirmed Problem Bipolar disorder (29282480) Bipolar disorder (F31.9) Active confirmed Problem Tobacco user (772105451) Nicotine dependence, uncomplicated, unspecified nicotine product type (F17.200) Active confirmed Problem Opioid use disorder (3361757995) Opioid use disorder (F11.99) Active confirmed Vital Signs Heart Rate 103 /min 01/24/2025 Temperature 98.4 degrees Fahrenheit 01/24/2025 Respiratory Rate 16 /min 01/24/2025 Oximetry 100 % 01/24/2025 Blood pressure diastolic 70 mm Hg 01/24/2025 Height 65 in 01/24/2025 Blood pressure systolic 114 mm Hg 01/24/2025 Weight 119.6 lbs 01/24/2025 BMI 19.9 kg/m2 01/24/2025 Encounters Encounter Location Date Provider Diagnosis [facility] [address] [place] [address] 01/24/2025 Andrés Maria Opioid use disorder F11.99 and Adult general medical exam Z00.00 [facility] [address] [place] [address] 01/24/2025 Mera Gar Bipolar disorder F31.9 and Opioid use disorder F11.[address] [place] [address] 05/14/2024 Christy Rae [address] [place] [address] 01/23/2025 Andrés Maria Assessments Encounter Date Diagnosis (ICD Code) Assessment Notes Treatment Notes Treatment Clinical Notes Section Notes 01/24/2025 Opioid use disorder (ICD-10 - F11.99) 01/24/2025 Bipolar disorder (ICD-10 - F31.9) 01/24/2025 Opioid use disorder (ICD-10 - F11.99) 01/24/2025 Adult general medical exam (ICD-10 - Z00.00) SUPR Programs: Based on an evaluation of [facility] Patient Placement Criteria, a recommendation for placement in Level III treatment is indicated and approved. Confirmation of diagnosis is documented in the initial treatment plan.Admit to the Mental Health/Crisis Residential Unit and initiate standing/protocol orders: The following PRN medications may be self-administered by patients under the supervision of approved staff or administered by nursing staff: Ibuprofen 200mg, 2-4 tablets by mouth (with food) every 6 hours as needed for pain (unless on lithium). (NOTE: Ibuprofen and acetaminophen may be given together, but alternating is recommended for continuous pain relief. Guaifenesin 400 mg, 1 tablet by mouth every four hours as needed for cough and chest congestion (take with large glass of water). Loratadine 10 mg, 1 tablet by mouth daily as needed for allergies, watery itchy eyes, or sinus drainage. Throat Lozenges, up to 4 tablets by mouth every three to four hours as needed for sore throat. Antacid tablets, 1-2 tablets by mouth every one to two hours as needed for indigestion or heart burn. If the client prefers liquid, could use: Liquid Antacid : 1 ounce by mouth up to four times daily as needed for indigestion or heartburn Omeprazole 20mg, 1 capsule by mouth once daily for 14 days for frequent heartburn (frequent heartburn is more than 2 episodes per week). Do not exceed 14 days. Do not give to client already taking a proton-pump inhibitor: esomeprazole (Nexium), lansoprazole (Prevacid), pantoprazole (Protonix), rabeprazole (Aciphex), dexlansoprazole (Dexilant) Zofran ODT disintegrating (under the tongue) 4 mg, 1-2 tablets every 8 hours as needed for nausea/vomiting. Milk of Magnesia (MOM): 1 ounce (30 milliliters) by mouth every day as needed for constipation. OR Miralax: Stir and fully dissolve 17 grams (1 packet or 1 capful to measured line) in any 4 to 8 ounces of beverage then drink once daily for constipation. Do not use for more than 7 days. OR Docusate 100 mg, 1 capsule twice daily as needed for constipation Hydrocortisone 1% Cream, apply topically (to the skin) to the affected area up to three times daily as needed for itching or inflammation (avoid eyes and genitals). 2% Antifungal Cream, apply topically (to the skin) as directed as needed to affected areas for athlete's foot or jock itch. Triple Antibiotic Ointment, apply topically (to the skin) up to three times daily as needed for minor cuts and scrapes. Carmex or Chapstick, apply topically (to the skin) as needed for chapped lips and skin. Orajel, apply to affected areas as needed for mouth or tooth pain. Lubricating Eye Drops, instill 1-2 drops to the affected eye(s) as needed for dry/irritated eye(s). Hemorrhoid medications, apply to affected area according to directions as needed for hemorrhoid discomfort and itch. Nix (Permethrin 1%) cream 2 ounces, apply topically (to the skin) as directed as needed for head lice. Sunscreen 30 SPF, Apply to exposed skin prior to exposure to sun. The following PRN medications must be approved by nursing staff before self-administration by patients: Diphenhydramine 25 mg, 2 tablets by mouth every 4 hours as needed for allergic reaction or itchy rash. Caution: Do not use hydroxyzine within 4 hours of diphenhydramine and vice versa. Loperamide 2 mg capsules, may give two capsules by mouth for the initial dose, followed by one capsule up to 3 times a day as needed for diarrhea. Acetaminophen 500 mg, 1 - 2 tablets by mouth every six hours as needed for pain. (NOTE: Ibuprofen and acetaminophen may be given together, but alternating is recommended for continuous pain relief). Oxygen-May administer oxygen 2L/min via nasal cannula if O2 saturation is less than 92%, AND client complains of shortness of breath. Target O2 saturation is 94-98%. Caution: Remember too much oxygen can be detrimental to a client with COPD. Oxygen is a drug and should be delivered by trained staff only. Nurses may remove superficial splinters and sutures from skin lacerations. May apply gauze or bandages to any weeping wounds. Contact nursing if there is pus, a foul odor, increased pain/redness/swelli ng, or if soaking through bandages. 01/24/2025 Other Discussed medication side effects, adverse effects, risks, benefits, as well as interactions. Encouraged non-use of opioids or alcohol. Has naloxone. Recommended participation in recovery groups and/or counseling services. May contact office with questions or concerns. 01/24/2025 Other Clinician met w ith client to assess needs for residential services. Clinician gathered information regarding historical presentation of mental health and substance use symptoms including withdrawal, psychiatric hospitalization history and presenting concern. Clinician conducted PHQ9 and CSSRS assessments as well as social drivers of health screening for the purposes of identifying additional service needs. Plan Of Treatment No Information Insurance Providers Payer Name Payer Address Payer Phone Subscriber Number Group Number Insured Name Patient Relationship to Insured Coverage Start Date Coverage End Date [email or web address] [address] [place] [address] [id number] Reza Bain Self - patient is the insured 0 [employer] [address] [place] [address] [id number] Reza Bain Self - patient is the insured 3 Medical (General) History Medical History History ICD Code TERE endometriosis Surgical History Surgery Date(Month/Year) 2017 Tonsillectomy 1998 D&C 2019 Hospitalization History Reason Date(Month/Year) Kidney stones w/ sepsis several times See surgeries
--- OUTSIDE RECORDS SUMMARY | 2025-01-25 17:39 | XMS_ITS | Clinical Summary ---
Author Organization [facility] Address [address] [place] [address] Phone Care Team Providers Care Buggy Man Name Role Phone Wild Avila MD Primary Care Provider [phone] Allergies No known active allergies Medications * This document contains information received from the source organization and may not represent a complete record from that organization. fluticasone (FLONASE) 50 MCG/ACT SuspensionIndicat ions:Viral URI 1-2 Sprays by Nasal route daily. Use in each nostril as directed. 1 Bottle 9 Active Additional Information Patient not taking.Informant: Self, Reported on 10/03/2024 sertraline (ZOLOFT) 50 MG TabletIndications :Anxiety and depression Take half tab nightly x6 nights and then increase to full tab nightly. 90 Tab 9 Active Additional Information Patient taking differently: 100 mg Oral DAILY, Take half tab nightly x6 nights and then increase to full tab nightly., Informant: Self, Reported on 10/03/2024 escitalopram (LEXAPRO) 20 MG Tablet Take 1 Tablet by mouth daily. 2 Active gabapentin (NEURONTIN) 300 MG Capsule Take 300 mg by mouth 3 times daily. 2 Active hydrOXYzine (ATARAX) 25 MG Tablet Take 25 mg by mouth 3 times daily. 2 Active Vivitrol 380 MG Recon Suspension 2 Active oxyCODONE (ROXICODONE) 5 MG TabletIndications :Pyelonephritis,S epsis due to Escherichia coli without acute organ dysfunction (HCC) Take 1-2 Tablets by mouth every 6 hours as needed for Moderate or more severe pain. 20 Tablet 2 Active Additional Information Patient not taking.Reported on 10/03/2024 ondansetron (ZOFRAN-ODT) 4 MG TABLET DISPERSIBLE Take 1 Tablet by mouth every 6 hours as needed for Nausea - 1st line. 10 Tablet 2 Active Additional Information Patient not taking.Reported on 10/03/2024 naloxone HCl (Narcan) 4 MG/0.1ML Liquid 1 [place] by Nasal route as needed (opioid overdose). 2 Each 2 Active Additional Information Patient not taking.Reported on 10/03/2024 dicyclomine (BENTYL) 20 MG Tablet Take 1 Tablet by mouth every 6 hours. 30 Tablet 3 Active Additional Information Patient not taking.Reported on 10/03/2024 ondansetron (ZOFRAN) 4 MG Tablet Take 1 Tablet by mouth every 8 hours as needed for Nausea - 1st line. 10 Tablet 3 Active Additional Information Patient not taking.Reported on 10/03/2024 hydrOXYzine (VISTARIL) 25 MG Capsule Take 1 Capsule by mouth 3 times daily as needed for Anxiety. 20 Capsule 3 Active QUEtiapine (SEROquel) 100 MG Tablet Take 150 mg by mouth nightly. Active benztropine (COGENTIN) 1 MG Tablet Take 1 mg by mouth daily. Active chlordiazePOXIDE (LIBRIUM) 10 MG CapsuleIndication s:Acute cystitis without hematuria,Opioid withdrawal (HCC),Stimulant withdrawal (HCC),Alcohol dependence with uncomplicated withdrawal (HCC) Take 1 Capsule by mouth every 8 hours as needed for Withdrawal. 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 Opioid abuse Insomnia Fatty liver Endometriosis Alcohol abuse Stimulant withdrawal Alcohol withdrawal Opioid withdrawal Resolved Problems Problem Noted Date Diagnosed Date Resolved Date Acute cystitis 01/21/2024 01/21/2024 Stimulant withdrawal 01/18/2024 024 Opioid withdrawal 01/18/2024 01/21/2024 Hyponatremia 01/25/2022 01/26/2022 Hypokalemia 01/25/2022 01/26/2022 Hypomagnesemia 01/25/2022 01/26/2022 Elevated LFTs 01/25/2022 01/26/2022 Acute kidney injury 11/18/2021 11/23/19 22 Immunizations Immunization Administration Dates Next Due DTAP VACCINE 06/13/2001, 1,02/13/2001,12/21,04/19/1996,07/07/1995,04/12/1995 ,02/14/1995 HEP B/HIB Combined Vaccine 04/10/2001 Hepatitis A Vaccine 12/24/2008 Hepatitis A, Pediatric, Unsp ecified Formulation 12/24/2008 Hepatitis B Vaccine, Pediatric/adolescent 07/07/1995,01/16/1995,1994 Hib (PRP-OMP) Vaccine 04/19/1996 Hib Vaccine,unspecified Formulation 02/13/2001 Inactivated Polio Vaccine 06/13/2001,03/2001,02/13/2001,12/21,07/07/1995,04/12/1995,02/14/1995 Influenza Vaccine 04/03/2005 MMR Vaccine 11/25/2016,12/21/1998,12/19/1995 Meningococcal Polysaccharide Vaccine (MPSV4) 02/22/2007 Meningococcal Vaccine 02/22/2007 Pneumococcal Vaccine Peds - 7 Valent 06/13/2001, 04/10/2001,02/13/2001 RHO(D) Immune Globulin- IV Or IM 11/25/2016,10/31,09/21/2016 TD VACCINE 09/22/2006 Varicella Vaccine Live 12/24/2008,02/22/2007 Family History Medical History Relation Name Comments No Known Problems Father Diabetes Maternal Grandmother Thyroid Disease Mother Cancer Paternal Grandfather kidney Cancer Paternal Grandmother ovarian Relation Name Status Comments Father Alive Maternal Grandfather Maternal Grandmother Alive Mother Alive Paternal Grandfather Paternal Grandmother Alive Social History Tobacco Use Types Packs/Day Years Used Date Smoking Tobacco: Never Smokeless Tobacco: Never Tobacco Cessation:Counseling Given: Not Answered Alcohol Use Standard Drinks/Week Comments Yes 10 (1 standard drink = 0.6 oz pu re alcohol) Daily [employer] Utilities Answer Date Recorded In the past 12 months has th e [employer], gas, oil, or water [employer] threatened to shut off services in your home? Patient declined 10/03/2024 Social Connection and Isolation Panel Answer Date Recorded In a typical week, how many times do you talk on the phone with family, friends, or neighbors? Patient declined 10/03/2024 How often do you get togethe r with friends or relatives? Patient declined 10/03/2024 How often do you attend anabaptist or protestant serv ices? Patient declined 10/03/2024 Do you belong to any clubs o r organizations such as anabaptist groups, unions, fraternal or athletic groups, or school groups? Patient declined 10/03/2024 How often do you attend meet ings of the clubs or organizations you belong to? Patient declined 10/03/2024 Are you , , di vorced, , never , or living with a partner? Patient declined 10/03/2024 AUDIT-C Answer Date Recorded Q1: How often do you have a drink containing alc ohol? Patient declined 10/03/2024 Q2: How many drinks containi ng alcohol do you have on a typical day when you are drinking? Patient declined 10/03/2024 Q3: How often do you have si x or more drinks on one occasion? Patient declined 10/03/2024 Overall Financial Resource Strain (CARDIA) Answe r Date Recorded How hard is it for you to pa y for the very basics like food, housing, medical care, and heating? Somewhat hard 10/03/2024 PHQ-2 Answer Date Recorded PHQ-2 Score 1 05/23/2019 [facility] - Occupational Stress Questionnaire Answer Date Recorded Do you feel stress - tense, restless, nervous, or anxious, or unable to sleep at night because your mind is troubled all the time - these days? Patient declined 10/03/2024 Exercise Vital Sign Answer Date Recorde d On average, how many days pe r week do you engage in moderate to strenuous exercise (like a brisk walk)? 0 days 10/03/2024 On average, how many minutes do you engage in exercise at this level? 0 min 10/03/2024 Hunger Vital Sign Answer Date Recorded Within the past 12 months, y ou worried that your food would run out before you got the money to buy more. Patient declined Within the past 12 months, t he food you bought just didn't last and you didn't have money to get more. Patient declined 08/2024 PRAPARE - Transportation Answer Date Re corded In the past 12 months, has l ack of transportation kept you from medical appointments or from getting medications? Patient declined 10/03/2024 In the past 12 months, has l ack of transportation kept you from meetings, work, or from getting things needed for daily living? Patient declined 10/03/2024 Housing Stability Vital Sign Answer Richie e Recorded In the last 12 months, was t here a time when you were not able to pay the mortgage or rent on time? Patient declined 09/25/19 24 In the last 12 months, how many places have you lived? 3 09/25/2023 In the last 12 months, was t here a time when you did not have a steady place to sleep or slept in a long-term (including now)? Patient declined 09/25/2023 Housing Stability Vital Sign Answer Richie e Recorded In the last 12 months, was t here a time when you were not able to pay the mortgage or rent on time? Patient declined 10/04/19 25 In the past 12 months, how m any times have you moved where you were living? 1 10/03/2024 At any time in the past 12 m [facility], were you homeless or living in a long-term (including now)? Patient declined 10/03/2024 Sexually Active Control Partners Comments Yes Male Condom, Oral Contraceptive Male Comments Unknown Sex and Gender Information Value Date Recorded Sex Assigned at Not on file Legal Sex Female 7:53 PM CDT Gender Identity Not on file Sexual Orientation Not on file Last Filed Vital Signs Vital Sign Reading Time Taken Comments Blood Pressure 118/66 10/05/2024 7:38 PM CDT Pulse 119 10/05/2024 11:52 AM CDT Temperature 36.8 C (98.2 F) 10/05/2024 7:38 PM CDT Respiratory Rate 16 10/05/2024 7:38 PM CDT Oxygen Saturation 98% 10/05/2024 7:38 PM CDT Inhaled Oxygen Concentration - - Weight 55.1 kg (121 lb 7 oz) 10/03/2024 2:07 PM CDT Height 162.6 cm (5' 4) 10/03/2024 2:07 PM CDT Body Mass Index 20.84 10/03/2024 2:07 PM CDT Plan of Treatment Health Maintenance Due Date Last Done Comments Hepatitis C Virus (HCV) Screening 1994 DTaP/Tdap/Td Immunization (6 - Tdap) 09/23/2006 09/22/2006, 06/13/2001, 04/10/2001, Additional history exists Human Papillomavirus (HPV) Immunization (1 - 3-dose series) 2009 Pneumococcal Immunization Combined (1 of 2 - PCV) 2013 06/13/2001, 04/10/2001, 02/13/2001 Pap Smear 12/16/2015 SARS-COV-2 Immunization ( - season) 2024 Cervical Cancer Screening (CCS) 2024 HPV/Cotest 2024 Influenza Immunization (#1) 2025 04/03/2005 Respiratory Syncytial Virus (RSV) Immunization (Adult) (1 - 1-dose 75+ series) 2069 Hepatitis B Immunization Completed 001, 07/07/1995, 01/16/1995, Additional history exists Meningococcal Immunization (ACWY) Aged Out 02/22/2007, 02/22/2007 No longer eligibl e based on patient's age to complete this topic Rotavirus Immunization Aged Out No lo nger eligible based on patient's age to complete this topic Insurance MEDICAID SLATER Advance Directives * Full Code (Latest Code Status on File) Date Activated Date Inactivated Comments 01/20/2024 11:33 AM 01/21/2024 2:07 PM CPR-Full Tr eatment: FULL ARREST: Attempt Resuscitation/CPR wit intubation and mechanical ventilation. PRE-ARREST: Use entire range of life support measures to stabilize the patient. * Full Code Date Activated Date Inactivated Comments 09/25/2023 6:18 PM 09/27/2023 3:26 AM CPR-Full Bert atment: FULL ARREST: Attempt Resuscitation/CPR wit intubation and mechanical ventilation. PRE-ARREST: Use entire range of life support measures to stabilize the patient. * Full Code Date Activated Date Inactivated Comments 05/29/2023 4:12 PM 05/29/2023 11:13 PM CPR-Full Treatment: FULL ARREST: Attempt Resuscitation/CPR wit intubation and mechanical ventilation. PRE-ARREST: Use entire range of life support measures to stabilize the patient. * Full Code Date Activated Date Inactivated Comments 01/24/2022 8:52 PM 01/26/2022 12:57 PM CPR-Full Tr eatment: FULL ARREST: Attempt Resuscitation/CPR wit intubation and mechanical ventilation. PRE-ARREST: Use entire range of life support measures to stabilize the patient. * Full Code Date Activated Date Inactivated Comments 11/18/2021 11:26 PM 11/22/2021 4:55 PM CPR-Full Tr eatment: FULL ARREST: Attempt Resuscitation/CPR wit intubation and mechanical ventilation. PRE-ARREST: Use entire range of life support measures to stabilize the patient. Care Teams Buggy Man Relationship Specialty Start Date End Date [place] [id number] PCP - General Family Medicine 11/18/21
--- OUTSIDE RECORDS SUMMARY | 2025-01-25 17:39 | XMS_ITS | Encounter Summary ---
Author Organization [facility] Healthcare Address [address] [place] [address] Care Team Providers Care Scale Model Maker Name Role Phone Lynda Perez Unavailable Unavailable Lynda Perez Unavailable Unavailable Wild Avila MD Primary Care Provider [phone] Jessica Her Unavailable Unavailable Encounter Details Date Type Department Care Team (Late st Contact Info) Description 01/16/2025 11:30 AM CDT Hospital Encounter [facility] Medical Care [address] [place] [address] Paula Morris MD [address] [place] [id number] Social History Tobacco Use Types Packs/Day Years Used Date Smoking Tobacco: Every Day Cigarettes 0.9 10.7 Started: 05/2014 Smokeless Tobacco: Never Alcohol Use Standard Drinks/Week Comments Yes 0 (1 standard drink = 0.6 oz pur e alcohol) a pint whiskey [facility] Utilities Answer Date Recorded In the past 12 months has [employer] electric, gas, oil, or water company threatened to shut off services in your [...] week 06/30/2023 How often do you attend [facility] or judaism services? Never 06/30/2023 Do you belong to any clubs o r organizations such as gnosticist groups, unions, fraternal or athletic groups, or [...] place to sleep or slept in a residential (including now)? 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 Author ABIGAIL General Jessica Giraldo Note: Pt is scheduled with on 10/15/20 to receive vivitrol injection if criteria is met. Pt missed appointment on this date. Made contact 02/25/21. Improve your coping skills Lifestyle No Jessica Her Note: I am attending outpatient at [place] and going to meetings. documented as of this encounter Visit Diagnoses Not on filedocumented in this encounter Care Teams Scale Model Maker Relationship Specialty Start Date End Date Wild Avila MD [address] [place] [address] PCP - General Family Medicine 10/05/20 Lynda Perez Secure Software Assessor Addiction Medicine 05/11/20 Lynda Perez Co Pilot Addiction Medicine 06/23/20 Jessica Her Secure Software Assessor Addiction Medicine 10/15/20 documented as of this encounter
--- OUTSIDE RECORDS SUMMARY | 2025-01-25 17:39 | XMS_ITS | Clinical Summary ---
Author Organization [facility] Address [address] [place] [address] Care Team Providers Care Cargo Worker Name Role Phone Wild Avila MD Primary Care Provider [phone] Source Comments [facility],non-owned Affiliates and Associated Physician Practices is amultiple site organization consisting of ambulatory clinics and hospital sitesin [place], [place], [place] and [place]. This disclosure is being madepursuant to the Care Everywhere program and may not contain all information available regarding this patient. Last updated 18.[facility] Allergies No known active allergies Medications * Be aware that medications may not be up to date on this document. Alwaysverify current medications with the patient. norethin-eth estrad-fe biphas (LO LOESTRIN FE) tablet 06/19/2017 Active Social History Tobacco Use Types Packs/Day Years Used Date Smoking Tobacco: Former Cigarettes Smokeless Tobacco: Never Comments No Sex and Gender Information Value Date Recorded Sex Assigned at Not on file Legal Sex Female 3:20 PM CDT Gender Identity Not on file Sexual Orientation Not on file Last Filed Vital Signs Vital Sign Reading Time Taken Comments Blood Pressure 128/82 11/08/2023 2:00 AM CDT Pulse 124 11/08/2023 2:00 AM CDT Temperature 36.9 C (98.5 F) 11/08/2023 2:00 AM CDT Respiratory Rate 20 11/08/2023 2:00 AM CDT Oxygen Saturation 99% 11/08/2023 2:00 AM CDT Inhaled Oxygen Concentration - - Weight 56.7 kg (125 lb) 10/12/2017 11:50 AM CDT Height 165.1 cm (5' 5) 10/12/2017 11:50 AM CDT Body Mass Index 20.8 10/12/2017 11:50 AM CDT Plan of Treatment Health Maintenance Due Date Last Done Comments HIV SCREENING 2009 HEPATITIS C SCREENING 12/10/2012 DTAP/TDAP/TD VACCINES (1 - Tdap) 2013 HEPATITIS B VACCINE (1 of 3 - 19+ 3-dose series) 2013 PAP SMEAR 12/16/2015 HPV VACCINE (1 - 3-dose SCDM series) 2021 COVID-19 VACCINE (1 - 2023-2 5 season) 2024 DEPRESSION SCREENING 07/03/2024 INFLUENZA VACCINE (#1) 2025 04/03/2005 ZOSTER VACCINE (1 of 2) 2044 HIB VACCINE Aged Out No longer eligi ble based on patient's age to complete this topic MENINGOCOCCAL (Group B) VACC INE SHARED DECISION-MAKING Aged Out No longer eligibl e based on patient's age to complete this topic MENINGOCOCCAL GROUPS A/C/Y/W VACCINE Aged Out No longer eligible b ased on patient's age to complete this topic PNEUMOCOCCAL VACCINE Aged Out No long er eligible based on patient's age to complete this topic Insurance [facility] Care Teams Cargo Worker Relationship Specialty Start Date End Date Wild Avila MD [address] [place] [address] PCP - General Family Medicine 11/08/23
--- OUTSIDE RECORDS SUMMARY | 2025-01-25 17:39 | XMS_ITS | Referral Summary ---
Author Organization [facility] Address [address] [place] [address] Care Team Providers Care Vp Account Director Name Role Phone Lynda Perez Unavailable Unavailable Lynda Perez Unavailable Unavailable Wild Avila MD Primary Care Provider [phone] Jessica Her Unavailable Unavailable Encounters Date Type Department Care Team Description 01/18/2025 2:22 PM CDT - 01/20/2025 4:27 PM CDT Hospital Encounter [facility] [address] [place] [address] Louis Timmons MD Sargsyan, Narine, MD Fasick, Victoria Rose, DO Polysubstance abuse (HCC) (Primary Dx); Alcohol use Discharge Disposition: Left Against Medical Advice 01/19/2025 Documentation [facility] [address] [place], [place] [phone] Kailey Caro 01/16/2025 11:30 AM CDT Hospital Encounter [facility] [address] [place] [address] Paula Morris MD 01/13/2025 [facility] Initial Eligibility [facility] [address] [place], [place] [phone] Milton Randall from Last 3 Months Allergies No known active allergies Medications gabapentin [...] 12/22/2020 Assessment & Plan (07/18/2024 12:51 PM FRENCH TRANSLATOR): Has been improving, decreased use, decreased ability to go out, has been drinking some, some limitations given availability of alcohol aram [place]; continue to work on cessation Assessment & [...] disorders Assessment & Plan (08/02/2021 4:41 PM FRENCH TRANSLATOR): Stable improving; patient reports that she is [...] 10/19/2020 Assessment & Plan (07/18/2024 12:51 PM FRENCH TRANSLATOR): Patient reports anxiety and depression are present never fully goes away, has been worsening, and varies day-to-day Can increase sertraline to 100 mg daily, continue Seroquel 150 mg nightly Assessment & Plan (01/12/2022 4:57 PM CDT): Not well controlled, patient reports mood continues to be up and down Continue Lexapro 20 mg daily; hydroxyzine 25 mg p.r.n. for anxiety Encouraged patient to gauge ACCOUNTING TUTOR for counseling Assessment & Plan (08/02/2021 4:41 PM FRENCH TRANSLATOR): Not well controlled, patient continues to have [...] 09/17/2019 Assessment & Plan (07/18/2024 12:51 PM FRENCH TRANSLATOR): Patient has change in environment, living [place] with boyfriend; has decreased symptoms when in [place], some difficulty when returns to the area [...] b.i.d.; encouraged patient to engage with peer organ recovery coordinator or individual counseling to help with long-term treatment goals Assessment & Plan (01/27/2022 4:46 PM CDT): Stable, improving; patient reports no use of any opioids in over a month Continue naltrexone monthly injections Patient is due in approximately 2 weeks Encouraged patient to do to engage with counseling through peer organ recovery coordinator Encouraged patient to engage with mutual support groups Assessment & Plan (01/12/2022 4:56 PM CDT): Able, improving; patient reports no use of fentanyl in the past 2 weeks Patient is interested giving Vivitrol injection today Provide Vivitrol today; encouraged patient to follow-up in 2 weeks for evaluation and response to therapy Assessment & Plan (08/02/2021 4:40 PM FRENCH TRANSLATOR): Not well control, continues to use opioids; [...] NA meetings as well as IOP at [facility] [place] Patient is instructed Vivitrol, will give tomorrow [...] D's Patient is currently in IOP at [facility] Patient desires Adderall, will order Vivitrol medication today with plan to administer in 1 week Sinus tachycardia 09/17/2019 Assessment & Plan (08/02/2021 4:42 PM FRENCH TRANSLATOR): Continues to have episodes tachycardia, palpitations as [...] Vivitrol Encouraged patient to engage with peer organ recovery coordinator for individual counseling Assessment & Plan (01/12/2022 4:57 PM CDT): 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 continues to use methamphetamine; patient is engaging with outpatient IOP a chest Encouraged patient to engage with ACCOUNTING TUTOR as well as peer organ recovery coordinator to help with further support and long-term [...] 10/19/2020 Elevated d-dimer 09/17/2019 12/29/2023 Transaminitis 12/29/2023 Immunizations Immunization Administration Dates Next Due DTaP [...] IM 11/25/2016,04/2017,09/21/2016 Td, adsorbed 09/22/2006 Varicella 12/24/2008,02/22/2007 Social History Tobacco Use Types Packs/Day Years Used Date Smoking Tobacco: Every Day Cigarettes 0.9 10.7 Started: 05/2014 Smokeless Tobacco: Never Tobacco Cessation:Ready to Q uit: Not Asked; Counseling Given: Not Answered Alcohol Use Standard Drinks/Week Comments Yes 0 (1 standard drink = 0.6 oz pur e alcohol) a warner whiskdilcia [facility] Utilities Answer Date Recorded In the past 12 months has th e electric, gas, oil, or water company threatened [...] often do you attend chur ch or adventism services? Never 06/30/2023 Do you belong to any clubs o r organizations such as latter day groups, unions, fraternal or athletic groups, or [...] place to sleep or slept in a alf (including now)? Yes 06/30/2023 Personal Safety Answer [...] on file Legal Sex Female 3:19 PM FRENCH TRANSLATOR Gender Identity Female 11/09/2020 10:56 AM CDT Sexual Orientation Straight 11/09/2020 10 :56 AM CDT Last Filed Vital Signs Vital Sign Reading [...] 01/18/2025 9:20 PM CDT Plan of Treatment Not on file Goals Goal Patient Goal Type Associated Problems Recent Progress Patient-Stated? Author Jessica Reynolds Note: Pt is scheduled with on 10/15/20 to receive vivitrol injection if criteria is met. Pt missed appointment on this date. Made contact 02/25/21. Improve your coping skills Lifestyle Jessica Giraldo Note: I am attending outpatient at [facility] and going to meetings. Procedures Procedure Name [...] DO LAB BLOOD ORDERABLES Fin al Result [facility] ([place]) [address] [facility] Department [place] [address] * (ABNORMAL) Comprehensive metabolic panel (01/19/2025 7:49 AM CDT) Sodium 131(L) 135 - 145 mmol/L [facility] ([place]) Potassium, pl 3.6 3.3 - 4.9 mmol/L [facility] ([place]) Chloride 98 97 - 110 mmol/L [facility] ([place]) CO2 23 22 - 32 mmol/L [facility] ([place]) Anion gap 13 2 - 15 mmol/L [facility] ([place]) BUN 9 6 - 25 mg/dL [facility] ([place]) Creatinine 0.70 0.60 - 1.10 mg/dL [facility] ([place]) Glucose 102 70 - 199 mg/dL [facility] ([place]) [...] DO LAB BLOOD ORDERABLES Fin al Result [facility] [address] [facility] Department [place] [address] * (ABNORMAL) Differential, auto (01/19/2025 6:32 AM [...] BLOOD ORDERABLES Final Resu lt [facility] ([place]) [address] [facility] Department [place] [address] * CBC with auto differential (01/19/2025 6:32 AM CDT) WBC 6.71 3.80 - 9.90 K/cumm Hgb 12.7 11.9 - 15.5 g/dL [facility] Hct 38.0 35.6 - 45.5 % [facility] Plt 210 150 - 400 K/cumm [facility] ([place]) MPV 9.9 9.1 - 12.3 fL [facility] ([place]) RBC 4.29 3.90 - 5.20 M/cumm [facility] ([place]) MCV 88.6 81.3 - 96.4 fL [facility] ([place]) MCH 29.6 27.1 - 33.3 pg [facility] ([place]) MCHC 33.4 32.3 - 35.7 g/dL [facility] RDW CV 13.0 11.1 - 14.9 % [facility] RDW SD 42.2 35.7 - 48.1 fL [facility] NRBC abs 0.00 0.00 - 0.01 K/cumm [facility] Blood 01/19/2025 6:32 AM CDT 01/19/2025 6:41 AM CDT us Louis Timmons MD LAB BLOOD ORDERABLES Final Resu lt [facility] ([place]) [address] [facility] Department [place] [address] * Ethanol (01/18/2025 6:38 PM CDT) Ethanol <10 <=10 mg/dL [facility] ([place]) Comment: Interpretive Data Legal limit of intoxication > or = 80 mg/dL Levels > or = 400 mg/dL are potentially TOXIC. Current interpretive data was last revised on 2018. Blood 01/18/2025 6:38 PM CDT 01/18/2025 6:42 PM CDT Kalie BATISTA LAB BLOOD ORDERABLES Final Resu lt Performing Organization Address City/[facility] Co de Phone Number [facility]) 1 [facility] [place] [address] * eGFR (01/18/2025 3:07 PM CDT) eGFR >90 >=60 mL/min/1. 73 m2 [...] 3:07 PM CDT 01/18/2025 3:09 PM CDT Kalie BATISTA LAB BLOOD ORDERABLES Final Resu lt Performing Organization Address City/[facility]/ZIP Co de Phone Number [facility] ([place]) [address] [facility] [place] [address] * (ABNORMAL) Differential, auto (01/18/2025 3:07 PM CDT) Neutrophil abs 9.35(H) 1.50 - 6.50 K/cumm [...] BAT[facility]A LAB BLOOD ORDERABLES Final Resu lt [facility] ([place]) [address] Department [place] [address] * (ABNORMAL) CBC with auto differential (01/18/2025 3:07 PM CDT) [facility] WBC 12.26(H) 3.80 - 9.90 K/cumm Hgb [...] 42.0 35.7 - 48.1 fL [facility] ([place]) NRBC abs 0.00 0.00 - 0.01 K/cumm [facility] ([place]) Blood 01/18/2025 3:07 PM CDT 01/18/2025 3:09 PM CDT us Kalie BATISTA LAB BLOOD ORDERABLES Final Resu lt [facility] ([place]) [address] [facility] Department [place] [address] * (ABNORMAL) Comprehensive metabolic panel (01/18/2025 3:07 PM CDT) [facility] Sodium 141 135 - 145 mmol/L [facility] [...] LAB BLOOD ORDERABLES Final Resu lt [facility] ([place]) [address] [facility] Department [place] [address] * (ABNORMAL) Drugs of Abuse Screen, Urine [...] 2023. Methadone, ur Not Detected CutOff 300ng/mL [facility] ([place]) Comment: Interpretive Data - Methadone: Samples containing greater than 300 ng/mL d,l-methadone or other cross-reacting compounds are reported as positive. False positive and false negative results are possible. Confirmatory testing required for definitive results. Current Interpretive Data was last reviewed 2023. Opiates, ur Not Detected CutOff 300ng/mL [facility] ([place]) Comment: Interpretive Data - Opiates: Samples containing greater than 300 ng/mL morphine or other cross-reacting compounds are reported as positive. False positive and false negative results are possible. Confirmatory testing required for definitive results. Current Interpretive Data was last reviewed 2023. Oxycodone, ur Not Detected CutOff 100ng/mL [facility] ([place]) Comment: Interpretive Data - Oxycodone: Samples containing greater than 100 ng/mL oxycodone or other cross-reacting compounds are reported as positive. False positive and false negative results are possible. Confirmatory testing required for definitive results. Current Interpretive Data was last reviewed 2023. Phencyclidine, ur Not Detected CutOff 25 ng/mL [facility] ([place]) Comment: Interpretive Data - Phencyclidine: Samples containing greater than 25 ng/mL phencyclidine or other cross-reacting compounds are reported as positive. False positive and false negative results are possible. Confirmatory testing required for definitive results. Current Interpretive Data was last reviewed 2023. Urine Creatinine 369 mg/dL [facility] ([place]) Comment: Interpretive Data Urine Creatinine: < 10 mg/dL is extremely dilute = or > 10 but < 20 mg/dL is dilute = or > 20 mg/dL is normal Current Interpretive Data was last revised on 2017. Urine 01/18/2025 2:45 PM CDT 01/18/2025 6:49 PM CDT Narrative [facility] ([place]) - 01/18/2025 7:13 PM CDT Drug of Abuse screening is performed by immunoassay for medical purposes only. This is not to be used for Pain Management purposes. us Kalie BATISTA LAB URINE ORDERABLES Final Resu lt [facility] ([place]) [address] [facility] Department [place] [address] * (ABNORMAL) Hepatitis panel, acute (10/10/2022 8:33 AM CDT) Hep A IgM Nonreactive Nonreactive [facility] Comment: Interpretive Data: If Hep A IgM Ab is reported as Equivocal, a new sample should be drawn in two weeks for testing. Current interpretive data was last revised on 19. Hep B core IgM Nonreactive Nonreactive [facility] Comment: Interpretive Data If HepB Core IgM Ab is reported as Equivocal, a new sample should be drawn in two weeks for testing. Current interpretive data was last revised on 19. Hep C Ab Reactive(A) Nonreactive [facility] Comment: Interpretive Data Nonreactive: Antibodies to [...] last revised on 2019. HepBsAg Nonreactive Nonreactive [facility] Blood 10/10/2022 8:33 AM CDT 10/10/2022 12:24 PM CDT Vale Perez MD LAB MICROBIOLOGY - GENERAL ORDER GABBY Final Result Performing Organization Address [facility] de Phone Number [facility] [address] [facility] Department [place] [address] from Last 3 Months or Most Recently Relevant to Health Maintenance Insurance [facility] Member Subscriber Plan / Payer (Ef fective 2018-Present) Name:Tiarra Denny Relation to Subscriber:Self Name:TIARRA DENNY Payer ID:[id number] ([facility]) Type:MANAGED CARE OTHER Address: [address] [facility] Advance Directives For more information, please contact: [phone] * Full Code (Latest Code Status on [...] 11:48 PM 09/19/2019 9:32 PM Care Teams Vp Account Director Relationship Specialty Start Date End Date [place] [address] PCP - General Family Medicine 10/05/20 Lynda Perez [employer] Addiction Medicine 05/11/20 Lynda Perez Line Tender Flakeboard Addiction Medicine 06/23/20 Jessica Her [employer] Addiction Medicine 10/15/20
--- OUTSIDE RECORDS SUMMARY | 2025-01-25 17:39 | XMS_ITS ---
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 Name Role Phone Traci Leal Primary Care Provider Andrés Maria Unavailable [phone] Allergies No Known Allergies Results Component Value Reference Range Notes Breathalyzer Reviewed date:01/24/2025 01:24:46 PM Interpretation: Performing Lab: Notes/Report: ADOLPH 0.000 14 Panel Urine Drug Screen Reviewed date:01/24/2025 09:41:57 AM Interpretation: Performing Lab: Notes/Report: THC POS SARAY neg MOP (OPI) neg AMP POS MET POS BAR neg BZO POS MDMA neg MTD neg OXY neg PCP neg BUP ne TCA neg FTY POS REASON FOR VISIT AWM Intake Medications Medication SIG (Take, Route, Frequency, Duration) Notes Start Date End Date Status Folic Acid 1 MG 1 tablet Orally Once a day; Duration: 14 days 01/24/2025 Active Gabapentin 600 MG 1 tablet Orally at bedtime; Duration: 4 days 01/24/2025 Active hydrOXYzine Pamoate 25 MG 1-2 capsules O rally every 4 hours as needed for anxiety, agitation, or inability to sleep. Do not give within 4 hours of diphenhydramine.; Duration: 30 days 01/24/2025 Active Gabapentin 300 MG 1 capsule Orally 3 times a day; Duration: 4 days 01/24/2025 Active Nicotine 21 MG/24HR 1 [...] per day); Duration: 7 days 01/24/2025 Active Social History Tobacco Use: Social History Observation Description Date Details (start date - stop date) Current Smoker NA - NA Sex Assigned At : Social History Observation Description Sex Assigned At Female Tobacco Control (Standard) Question Answer Notes Tobacco use: Current smoker Vital Signs Weight 119.6 lbs 01/24/2025 Height 65 in 01/24/2025 BMI 19.9 kg/m2 01/24/2025 Blood pressure systolic 114 mm Hg 01/25/20 Blood pressure diastolic 70 mm Hg 025 Heart Rate 103 /min 01/24/2025 Oximetry 100 % 01/24/2025 Temperature 98.4 degrees Fahrenheit 01/25/20 Respiratory Rate 16 /min 01/24/2025 Encounters Encounter Location Date Provider Diagnosis [address] [place] [address] 01/24/2025 Andrés Maria Opioid use disorder F11.99 and Adult general medical exam Z00.00 Assessments Encounter Date Diagnosis (ICD Code) Assessment Notes Treatment Notes Treatment Clinical Notes Section Notes 01/24/2025 Opioid use disorder (ICD-10 - F11.99) 01/24/2025 Adult general medical exam (ICD-10 - Z00.00) SUPR Programs: Based on an evaluation of [facility] Patient Placement Criteria, a recommendation for placement [...] May contact office with questions or concerns. Plan Of Treatment Medication Medication Name Sig Start Date Stop Date Notes Folic Acid 1 MG 1 tablet Orally Once a day; Duration: 14 days 01/24/2025 Gabapentin 600 MG 1 tablet Orally at b edtime; Duration: 4 days 01/24/2025 Gabapentin 300 MG 1 capsule Orally 3 t imes a day; Duration: 4 days 01/24/2025 hydrOXYzine Pamoate 25 MG 1-2 capsules O rally every 4 hours as needed for anxiety, agitation, or inability to sleep. Do not give within 4 hours of diphenhydramine.; Duration: 30 days 01/24/2025 Gabapentin 300 MG 1 capsule Orally 3 t imes a day; Duration: 4 days 01/24/2025 Gabapentin 600 MG 1 tablet Orally at b edtime; Duration: 4 days 01/24/2025 Nicotine 21 MG/24HR 1 patch to skin. Transdermal Once a day, removing at bedtime; Duration: 28 days 01/24/2025 Prochlorperazine Maleate 10 MG 1 tablet as needed Orally every 6 hours 01/24/2025 Melatonin 5 MG 1 tablet at bedtime as needed Orally Once a day; Duration: 30 days 01/24/2025 Thiamine HCl 100 MG 1 tablet Orally Once a day; Duration: 14 days 01/24/2025 Multi Vitamin - 1 tablet Orally Once a day; Duration: 30 days 01/24/2025 Nicotine Polacrilex 4 MG Chew 1 piece as needed for nicotine cravings Mouth/Throat up to every hour (max of 20 pieces per day); Duration: 7 days 01/24/2025 Treatment Notes Assessment Notes Adult general medical exam SUPR Programs: Based on an evaluation of [facility] Patient Placement Criteria, a recommendation for placement [...] there is pus, a foul odor, increased pain/redness/swelling, or if soaking through bandages. Other Discussed medication side effects, adverse effects, risks, benefits, as well as interactions. Encouraged non-use of opioids or alcohol. Has naloxone. Recommended participation in recovery groups and/or counseling services. May contact office with questions or concerns. Progress Notes * Lui BAINAlieB: 5 (29 yo F)Acc No.[id number]:01/24/2025 UNLOCKED PROGRESS NOTE Patient: Reza SALAS Provider: Joselin Maria, MSN, CLINIC DIRECTOR, STAKEHOLDER MANAGER-C :1995 A ge:29 Y S ex:Female Date:01/24/2025 Address:[address] [place], [place] [id number] Pcp:Traci Leal Subjective: * Chief Complaints: * 1 . AWM Intake. * HPI: P reventative Health and Wellness follow-up: ... D epression Screening: PHQ-9 L ittle interest or pleasure in doing things?Not at all F eeling down, depressed, or hopeless S everal days T rouble falling or staying asleep, or sleeping too much S everal days F eeling tired or having little energy S everal days P oor appetite or overeating S everal F eeling bad about yourself or that you are a failure, or have let yourself or your family down S everal T rouble concentrating on things, such as reading the newspaper or watching television N ot at all M oving or speaking so slowly that other people could have noticed; or the opposite, being so fidgety or restless that you have been moving around a lot more than usual S everal T houghts that you would be better off or of hurting yourself in some way N ot at all T otal Score 6 I nterpretation M ild Depression Intervention D epression Screening Findings P ositive F ollow-Up for Depression P atient refused intervention C SSRS Interpretation and Follow Up Plan: CSSRS Interpretation and Follow Up Plan C SSRS Screen documented using SF Y es R isk Disposition from SF L ow - No Follow Up Plan Required F ollow Up Plan N o Follow Up Plan required at this time. T imeframe of Screening T liban Mcadams OWS repeat: Time Evaluated _ _0925. Resting Pulse Rate 2 Pulse rate 101-120 109.? Sweating 1 Subjective report of chills or flushing.? Restlessness 0 Able to sit still. Pupil Size 1 Pupils possibly larger than normal for room light. Bone or joint aches 1 Mild diffuse discomfort. Runny nose or tearing 0 Not present. GI Upset , 2 Nausea or loose stool. Tremor 2 Slight tremor observable. Yawning 1 Yawning once or twice during assessment.? Anxiety or Irritability 1 Patient reports increasing irritability or anxiousness. Gooseflesh skin 0 Skin is smooth. Score _ _11. Initials _ . S creening: [place] Suicide Severity Rating Scale (LF) D o you want to initiate with S creener form 1 . Wish to be : Have you wished you were or wished you could go to sleep and not wake up? N o 2 . Suicidal Thoughts: Have you actually had any thoughts of killing yourself? N o 6 . Suicide Behavior Question: Have you ever done anything,started to do anything, or prepared to end your life? N o I nterpretation: L ow Risk M AR Initial Assessment: Reza presents for AWM. Drug of choice: alcohol and fentanyl. States for the past 4 years drinking a fifth of whiskey daily with last drink on yesterday evening. Reports using fentanyl for the past 5 years using unknown amounts daily wtih last use early this morning. History of non-fatal overdose in the past. Has been prescribed both Vivitrol and Suboxone in the past for treatment, unsure of interest in either medication at this time. [facility] in [place] called client had no avialable refills for home medications. Substance use history S ubstance Use History, drugs of choice: A lcohol, OTHER (specify): alcohol and fentanyl Addiction Treatment History P rior Medications for AUGUSTIN treatment N altrexone/Revia, Suboxone T herapy/counseling and Recovery support (peers/groups) N o history of therapy/counseling or engagement with recovery support peer/groups. Therapy/counseling and recovery support discussed and encouraged. Referrals placed. History of Infectious Diseases H istory of viral hepatitis N o H istory of HIV N o H istory of TB N o H istory of other infectious diseases N o History of IV drug use and related infections H istory of injection drug use? Y es H istory of Infections related to IV drug use?None. Acute Trauma A cute Trauma N o Psychiatric History H istory of psychiatric diagnoses? Y es (specify) H as a psychiatric provider? N o. Patient is interested in a psychiatric evaluation with [facility] provider. medical staff manager will coordinate appointment. Primary Care H as a primary care provider? N o I nterested in primary care services at this time? Y es. medical staff manager will coordinate appointment. Assessment and history specific to females F emale/Female at ? Y es P regnancy testing: N egative. Rapid test completed in office and is negative. C ontraception: U ses contraception. Hepatitis A and B vaccination status V accination status Hep A D enies vaccination to Hep A. Vaccination encouraged and resources offered. V accination status, Hep B R eports vaccination for Hep B Housing Stability and Employment I s housing stable/safe? Y es C urrently employed? U nemployed. Support System: H as a support system: N o. Recovery support services offered. Narcan Access H as Narcan and has been trained on its use??Yes. Prescription Drug Monitoring Program P rescription Drug Monitoring Program reviewed? Y es. No concerns identified. * ROS: B asic ROS: Denies C hills. D enies S weats. D enies C onstipation. A dmits A nxiety. A dmits D epressed Mood. D enies P sychiatric Condition. D enies S uicidal Thoughts. * Medical History: S UD, Endometriosis. * Surgical History: C -section 2016, Tonsillectomy 1997, D&C 2018. * Hospitalization/Major Diagno stic Procedure: S ee surgeries , Kidney stones w/ sepsis several times . * Family History: F ather: alive, anxiety, substance abuse. M other: alive. 1 brother(s) , 3 sister(s) - healthy. 1 son(s) - healthy. . son- lives with dad, I get him 2 days a week. * Social History: P rimary Social History: L iving Arrangement L iving Arrangement: I ndependent Living With boyfriend I s this a supportive environment? Y es Alcohol Use A lcohol Use Frequency: W eekly or Daily T ype of alcohol consumed P int to a fifth Illicit Substance Usage I llicit Substance Usage: Y es S ubstance Used: M ethamphetamine Fentanyl F requency Methamphetamine is used: M eth used daily, 8 ball, smokes it. Fentanyl used daily, 15 grams average, shoots up/snorts it. I nterested in quitting: Y es Employment Status E mployment Status: E mployed [employer] Tobacco Use - do not use T obacco Use: S tatus Reviewed with Patient T obacco Use: T obacco Control (Standard) T obacco use: C urrent smoker * Medications: N one * Allergies: N .K.D.A. Objective: * Vitals: I nitials: TT, Wt:119.6, Ht: 65, BMI:19.9, BP:114/70, HR:103, Oxygen sat %:100, Temp:98.4, RR:16, LMP: 12/2024, Pain scale:8. * Examination: C IWA-AR: Time of Assessment: 0 925. NAUSEA AND VOMITING: Do you feel sick to your stomach? Have you vomited? Observation. 1 mild nausea with no vomiting. TREMOR - Arms extended and fingers spread apart. Observation.?3. PAROXYSMAL SWEATS - Observation. 0 no sweat visible. ANXIETY - Do you feel nervous? Observation. 3 . TACTILE DISTURBANCES - Have you any itching, pins and needles sensations, any burning, any numbness, or do you feel bugs crawling on or under your skin? Observation 0 none, 0 none. AUDITORY DISTURBANCES - Are you more aware of sounds around you? Are they harsh? Do they frighten you? Are you hearing anything that is disturbing you? Are you hearing things you know are not there? Observation. 0 not present. VISUAL DISTURBANCES - Does the light appear to be too bright? Is its color different? Does it hurt your eyes? Are you seeing anything that is disturbing you? Are you seeing things you know are not there? Observation. 0 not present. HEADACHE, FULLNESS IN HEAD - Does your head feel different? Does it feel like there is a band around your head? Do not rate for dizziness or lightheadedness. Otherwise, rate severity. 0 not present. AGITATION - Observation 0 normal activity. ORIENTATION AND CLOUDING OF SENSORIUM - What day is this? Where are you? Who am I? 0 oriented and can do serial additions. . A [facility] Physical Assessment: Intoxication and Withdrawal signs I ntoxication signs D rooping eyelids, Head nodding W ithdrawal Signs N o withdrawal signs are present during examination. . G eneral Examination: GENERAL APPEARANCE: i n no acute distress. HEAD: n ormocephalic, atraumatic. NOSE: n mervat patent. NECK/THYROID: R SUPA. SKIN: w arm and dry, no rashes, good turgor. LUNGS: r espirations regular and easy. ABDOMEN: b owel sounds present, soft, nontender, nondistended, no masses palpable, no organomegaly. EXTREMITIES: n o edema. PERIPHERAL PULSES: n ormal. NEUROLOGIC: g ait normal. PSYCH: s peech clear, alert, oriented x4, poor eye contact, anxious appearing, cooperative with exam, thought process logical, goal directed. ? A ctivity Permissions and Medication Self Administration: Activity Level & Medication Self-Administration Permissions? A ctivity Level Permitted: T he patient/client may fully take part in physical fitness programming including aerobic, muscular strength, and flexibility training without restriction. M edication Self-Administration Permissions:?Medications may be self-administered by the patient/client under the supervision of approved staff or administered by nursing staff. Assessment: * Assessment: 1. O pioid use disorder - F11.99 (Primary) 2 . A dult general medical exam - Z00.00 Plan: * Treatment: Value Reference Range T HC POS * C OC neg * M OP (OPI) neg * A MP POS * M ET POS * B AR neg * B ZO POS * M DMA neg * M TD neg * O XY neg * P CP neg * B UP ne * T CA neg * F TY POS 2.?Adult general medical exam? Start Nicotine Polacrilex Gum, 4 MG, Chew 1 piece as needed for nicotine cravings, Mouth/Throat, upto every hour (max of 20 pieces per day), 7 days, 140, Refills 3;?Start Multi Vitamin Tablet, -, 1 tablet, Orally, Once a day, 30 days, 30;?Start Melatonin Tablet, 5 MG, 1 tablet at bedtimeas needed, Orally, Once a day, 30 days, 30 Tablet, Refills 0;?Start Nicotine Patch 24 Hour, 21MG/24HR, 1 patch to skin., Transdermal, Once a day, removing at bedtime, 28 days, 28, Refills 0; Start hydrOXYzine Pamoate Capsule, 25 MG, 1-2 capsules, Orally, every 4 hours as needed for anxiety, agitation, or inability to sleep. Do not give within 4 hours of diphenhydramine., 30 days, 60, Refills 0.?LAB: Breathalyzer (Collection Date & Time - 01/24/2025 01:24 PM)* Value Reference Range B AC 0.000 Notes: SUPR Programs: Based on an evaluation of [facility] Patient Placement Criteria, a recommendation for placement in Level III treatment is indicated and approved. Confirmation of diagnosis is documented in the initial treatment plan. Admit to the Mental Health/Crisis Residential Unit and initiate standing/protocol orders: The following PRN medications may be self-administered by patients under the supervision of approved staff or administered by nursing staff: * Ibuprofen 200mg, 2-4 tablets by mouth (with food) every 6 hours as needed for pain (unless on lithium). (NOTE: Ibuprofen and acetaminophen may be given together, but alternating is recommended for continuous pain relief. * Guaifenesin 400 mg, 1 tablet by mouth every four hours as needed for cough and chest congestion (take with large glass of water). * Loratadine 10 mg, 1 tablet by mouth daily as needed for allergies, watery itchy eyes, or sinus drainage. * Throat Lozenges, up to 4 tablets by mouth every three to four hours as needed for sore throat. * Antacid tablets, 1-2 tablets by mouth every one to two hours as needed for indigestion or heart burn. If the client prefers liquid, could use: Liquid Antacid : 1 ounce by mouth up to four times dailyas needed for indigestion or heartburn * Omeprazole 20mg, 1 capsule by mouth once daily for 14 days for frequent heartburn (frequent heartburn is more than 2 episodes per week). Do not exceed 14 days. Do not give to client already taking a proton-pump inhibitor: esomeprazole (Nexium), lansoprazole (Prevacid), pantoprazole (Protonix), rabep razole (Aciphex), dexlansoprazole (Dexilant) * Zofran ODT disintegrating (under the tongue) 4 mg, 1-2 tablets every 8 hours as needed for nausea/vomiting. * Milk of Magnesia (MOM): 1 ounce (30 milliliters) by mouth every day as needed for constipation.ORMiralax: Stir and fully dissolve 17 grams (1 packet or 1 capful to measured line) in any 4 to 8 ounces of beverage then drink once daily for constipation. Do not use for more than 7 days.ORDocusate 100 mg, 1 capsule twice daily as needed for constipation * Hydrocortisone 1% Cream, apply topically (to the skin) to the affected area up to three times dailyas needed for itching or inflammation (avoid eyes and genitals). * 2% Antifungal Cream, apply topically (to the skin) as directed as needed to affected areas for athlete's foot or jock itch. * Triple Antibiotic Ointment, apply topically (to the skin) up to three times daily as needed for minor cuts and scrapes. * Carmex or Chapstick, apply topically (to the skin) as needed for chapped lips and skin. * Orajel, apply to affected areas as needed for mouth or tooth pain. * Lubricating Eye Drops, instill 1-2 drops to the affected eye(s) as needed for dry/irritated eye(s). * Hemorrhoid medications, apply to affected area according to directions as needed for hemorrhoid discomfort and itch. * Nix (Permethrin 1%) cream 2 ounces, apply topically (to the skin) as directed as needed for head lice. * Sunscreen 30 SPF, Apply to exposed skin prior to exposure to sun. The following PRN medications must be approved by nursing staff before self- administration by patients: * Diphenhydramine 25 mg, 2 tablets by mouth every 4 hours as needed for allergic reaction or itchy rash.Caution: Do not use hydroxyzine within 4 hours of diphenhydramine and vice versa. * Loperamide 2 mg capsules, may give two capsules by mouth for the initial dose, followed by one capsule up to 3 times a day as needed for diarrhea. * Acetaminophen 500 mg, 1 - 2 tablets by mouth every six hours as needed for pain. (NOTE: Ibuprofen and acetaminophen may be given together, but alternating is recommended for continuous pain relief). * Oxygen-May administer oxygen 2L/min via nasal cannula if O2 saturation is less than 92%, AND clientcomplains of shortness of breath. Target O2 saturation is 94-98%.Caution: Remember too much oxygen can be detrimental to a client with COPD. Oxygen is a drug and should be delivered by trained staff only. Nurses may remove superficial splinters and sutures from skin lacerations. May apply gauze or bandages to any weeping wounds. Contact nursing if there is pus, a foul odor, increased pain/redness/swelling, or if soaking through bandages. ??3.?Others? Notes: Discussed medication side effects, adverse effects, risks, benefits, as well as interactions. Encouraged non-use of opioids or alcohol. Has naloxone. Recommended participation in recovery groups and/or counseling services. May contact office with questions or concerns.?? * Recommended Wellness and Pre vention Guidelines: * S ian gonzalez L ast Done N ext Due A ction Taken N ONCOMPLIANT A lcohol use screening - 0 01/24/2025 - - N ONCOMPLIANT C ervical cancer screening - 0 01/24/2025 - - N ONCOMPLIANT D epression followup 1 0 01/24/2025 - - N ONCOMPLIANT D epression screening 1 0 01/24/2025 - - N ONCOMPLIANT H IV screening - 0 01/24/2025 - - N ONCOMPLIANT S moking cessation intervention 1 0 01/24/2025 - - N ONCOMPLIANT S moking status 1 0 01/24/2025 - - * Procedure Codes: 9 9000 SPECIMEN HANDLING * Preventive Medicine: Counseling: S MOKING: Patient counselled on the dangers of tobacco use and urged to quit. . * * Electronic signature of Xiomy Maria , SHADE, [id number] on 01/25/2025 at 05:39 PM CDT Sign off status: Pending * Provider: Joselin Maria, MSN, CLINIC DIRECTOR, STAKEHOLDER MANAGER-C Date: 01/24/2025 Generated for Dre ng/Faxing/eTransmitting on: 01/25/2025 05:39 PM CDT History and Physical Notes * HPI (History of Present Illness) Category Sub-Category Detail Notes Category Not es Depression Screening PHQ-9 Little inte rest or pleasure in doing things: Not at all Feeling down, depressed, or hopeless: Se veral days Trouble falling or staying asleep, or sl eeping too much: Several days Feeling tired or having little energy: S everal days Poor appetite or overeating: Several day s Feeling bad about yourself o r that you are a failure, or have let yourself or your family down: Several days Trouble concentrating on thi ngs, such as reading the newspaper or watching television: Not at all Moving or speaking so slowly that other people could have noticed; or the opposite, being so fidgety or restless that you have been moving around a lot more than usual: Several days Thoughts that you would be b agapito off or of hurting yourself in some way: Not at all Total Score: 6 Interpretation: Mild Depression Intervention Depression Screening Findings: P ositive Follow-Up for Depression: Patient refuse d intervention COWS repeat Time Evaluated __0925 Resting Pulse Rate 2 Pulse rate 101-120 109 Sweating 1 Subjective report of chills or flushing Restlessness 0 Able to sit still Pupil Size 1 Pupils possibly la rger than normal for room light Bone or joint aches 1 Mild diffuse disco mfort Runny nose or tearing 0 Not present GI Upset , 2 Nausea or loose stool Tremor 2 Slight tremor obse rvable Yawning 1 Yawning once or tw ice during assessment Anxiety or Irritability 1 Patient report s increasing irritability or anxiousness Gooseflesh skin 0 Skin is smooth Score __11 Initials _ Screening [place] Suicide Sev erity Rating Scale (LF) Do you want to initiate with: Screener form 1. Wish to be : Have you wished you were or wished you could go to sleep and not wake up?: No 2. Suicidal Thoughts: Have you actually had any thoughts of killing yourself?: No 6. Suicide Behavior Question: Have you ever done anything,started to do anything, or prepared to end your life?: No Interpretation:: Low Risk MAR Initial Assessment History of Infect ious Diseases History of viral hepatitis: No History of HIV: No History of TB: No History of other infectious diseases: No Acute Trauma Acute Trauma: No History of IV drug use and related infec tions History of injection drug use?: Yes History of Infections related to IV drug use: None. Psychiatric History History of psychiatric diagn oses?: Yes (specify) Has a psychiatric provider?: No. Patient is interested in a psychiatric evaluation with [facility] provider. medical staff manager will coordinate appointment. Substance use history Substance Use Hist ory, drugs of choice:: Alcohol, OTHER (specify): alcohol and fentanyl Addiction Treatment History Prior Medica tions for AUGUSTIN treatment: Naltrexone/Revia, Suboxone Therapy/counseling and Recov joana support (peers/groups): No history of therapy/counseling or engagement with recovery support peer/groups. Therapy/counseling and recovery support discussed and encouraged. Referrals placed. Primary Care Has a primary care provider?: No Interested in primary care services at this time?: Yes. medical staff manager will coordinate appointment. Assessment and history specific to females Femal e/Female at ?: Yes testing:: Negative. Rapid test completed in office and is negative. Contraception:: Uses contraception. Hepatitis A and B vaccination status Vac cination status Hep A: Denies vaccination to Hep A. Vaccination encouraged and resources offered. Vaccination status, Hep B: Reports vacci nation for Hep B Housing Stability and Employment Is housing stab le/safe?: Yes Currently employed?: Unemployed. Support System: Has a support system :: No. Recovery support services offered. Narcan Access Has Narcan and has b eedaryn trained on its use?: Yes. Prescription Drug Monitoring Program Pre scription Drug Monitoring Program reviewed?: Yes. No concerns identified. Preventative Health and Wellness follow-up . . . CSSRS Interpretation and Follow Up Plan CSSRS Interpretation and Follow Up Plan CSSRS Screen documented using SF: Yes Risk Disposition from SF: Low - No Follo w Up Plan Required Follow Up Plan: No Follow Up Plan requir ed at this time. Timeframe of Screening: Today Examination Category Sub-Category Detail Notes Category Not es General Examination GENERAL APPEARANCE: in no acute di stress HEAD: normocephalic, atrau matic NOSE: nares patent NECK/THYROID: AMY LUNGS: respirations regular and easy ABDOMEN: bowel sounds present , soft, nontender, nondistended, no masses palpable, no organomegaly NEUROLOGIC: gait normal SKIN: warm and dry, no saba hes, good turgor EXTREMITIES: no edema PERIPHERAL PULSES: normal PSYCH: speech clear, alert, oriented x4, poor eye contact, anxious appearing, cooperative with exam, thought process logical, goal directed ASAM Physical Assessment Intoxication an d Withdrawal signs Intoxication signs: Drooping eyelids, Head nodding . Withdrawal Signs: No withdrawal signs ar e present during examination. Activity Permissions and Medication Self Administration Activity Level & Medication Self-Administration Permissions Activity Level Permitted:: The patient/client may fully take part in physical fitness programming including aerobic, muscular strength, and flexibility training without restriction. Medication Self-Administrati on Permissions:: Medications may be self- administered by the patient/client under the supervision of approved staff or administered by nursing staff. CIWA-AR NAUSEA AND VOMITING: Do you feel sick to your stomach? Have you vomited? Observation. 1 mild nausea with no vomiting . TREMOR - Arms extended and f ingers spread apart. Observation. 3 PAROXYSMAL SWEATS - Observation. 0 no sw eat visible ANXIETY - Do you feel nervous? Observa tion. 3 TACTILE DISTURBANCES - Have you any itching, pins and needles sensations, any burning, any numbness, or do you feel bugs crawling on or under your skin? Observation 0 none, 0 none AUDITORY DISTURBANCES - Are you more aware of sounds around you? Are they harsh? Do they frighten you? Are you hearing anything that is disturbing you? Are you hearing things you know are not there? Observation. 0 not present VISUAL DISTURBANCES - Does the light appear to be too bright? Is its color different? Does it hurt your eyes? Are you seeing anything that is disturbing you? Are you seeing things you know are not there? Observation. 0 not present HEADACHE, FULLNESS IN HEAD - Does your head feel different? Does it feel like there is a band around your head? Do not rate for dizziness or lightheadedness. Otherwise, rate severity. 0 not present AGITATION - Observation 0 normal activit y ORIENTATION AND CLOUDING OF SENSORIUM - What day is this? Where are you? Who am I? 0 oriented and can do serial additions Time of Assessment: 1087
--- OUTSIDE RECORDS SUMMARY | 2025-01-25 17:40 | XMS_ITS ---
Author Organization [facility] Address [address] [place] [address] Care Team Providers Care Software Engineer Developer Name Role Phone Traci Leal Primary Care Provider Mera Gar [phone] REASON FOR VISIT CRU Admissions Assessment Social History Sex Assigned At : Social History Observation Description Sex Assigned At Female PRAPARE Question Answer Notes What is your current housing situation? I have h ousing Are you worried about losing your housing? Yes What is the highest level of school that you have finished? 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 Stress is when someone feels tense, nervous, anxious, or can\t sleep at night because their mind is troubled Quite a bit In the past year have you sp ent more than 2 nights in a row in a group home, fpc, correction center, or juvenile correctional facility? No Are you a refugee? No What country are you from? [place] Do you feel physically and e motionally safe where you currently live? Yes In the past year, have you b een afraid of your partner or ex-partner? No PRAPARE Score: 8 Encounters Encounter Location Date Provider Diagnosis Replaced By [facility] [place] [address] 01/24/2025 Mera Gar Bipolar disorder F31.9 and Opioid use disorder F11.99 Assessments Encounter Date Diagnosis (ICD Code) Assessment Notes Treatment Notes Treatment Clinical Notes Section Notes 01/24/2025 Bipolar disorder (ICD-10 - F31.9) 01/24/2025 Opioid use disorder (ICD-10 - F11.99) 01/24/2025 Other Clinician met w [facility] healthcare client to assess needs for residential services. Clinician gathered information regarding historical presentation of mental health and substance use symptoms including withdrawal, psychiatric hospitalization history and presenting concern. Clinician conducted PHQ9 and CSSRS assessments as well as social drivers of health screening for the purposes of identifying additional service needs. Plan Of Treatment Treatment Notes Assessment Notes Other Clinician met with davin mramolejo to assess needs for residential services. Clinician gathered information regarding historical presentation of mental health and substance use symptoms including withdrawal, psychiatric hospitalization history and presenting concern. Clinician conducted PHQ9 and CSSRS assessments as well as social drivers of health screening for the purposes of identifying additional service needs. Next Appt Details Follow Up: prn, Reason: Progress Notes * DENISHA, SabinaB: 5 (29 yo F)Acc No.[id number]:01/24/2025 Patient: Davin CAMPBELLIRMAReza JUNE Provider: Justin Gar LCSW :1995 A ge:29 Y S ex:Female Date:01/24/2025 Address:[address] [place], [place] [id number] Pcp:Traci Leal Subjective: * Chief Complaints: * C RU Admissions Assessment * HPI: P sychiatric Assessment - Current Symptoms: Primary concern today , Admitting [facility] for [facility]. O [place] of Mental Health Symptoms H x of anxiety, Bipolar, and p tsd. Some depressive symptoms. . H istory of Psychiatric Hospitalizations n one reported at this time. . H istory of Psychiatric and Behavioral Health Treatment H istory of some mental health support and residential substance use treatment. . S ubstance Use: Current Use Patterns R eported use of fentanyl and meth daily since 2019. Alcohol use since 2014, currently 1/5 daily. . S ubstance of Choice a lcohol, fentanyl, meth. H istory of substance use s tarted substance use around 2014, 3-4 years of sustained sobriety, began use again around 2019. . H x of Withdrawal R eported withdrawal symptoms including nausea, shaking, fidgeting, somatic symptoms, insomnia, cold sweats. . A ssessment of Social Determinants of Health::: Has A PRAPARE Been Completed In The Past Year? H as a PRAPARE Been Completed In The Past Year? Y es, W as It Completed Today Using SmartIn[employer]Net? Y es.? a TBC For Substance Use Services: Who Is Your Primary Care Provider? D o You Have A Primary Care Provider? Y es Dr. Avila - PCP, D ate of last physical exam Physical completed as part of admission.. D o You Have A Psychiatric Provider? D o You Have A Psychiatric Provider? N o Requested beginning services at [facility]. D o You Have Any Other Professional Supports? D o You Have Any Other Professional Supports N o. C onsent Forms Completed C onsent Forms N one Needed at this time. D epression Screening: PHQ-9 L ittle interest or pleasure in doing things N ot at all, F eeling down, depressed, or hopeless S everal days, T rouble falling or staying asleep, or sleeping too much S everal days, F eeling tired or having little energy S everal days, P oor appetite or overeating S everal days, F eeling bad about yourself or that you are a failure, or have let yourself or your family down S everal days, T rouble concentrating on things, such as reading the newspaper or watching television N ot at all, M oving or speaking so slowly that other people could have noticed; or the opposite, being so fidgety or restless that you have been moving around a lot more than usual S everal days, T houghts that you would be better off or of hurting yourself in some way N ot at all, T otal Score?6, I nterpretation M ild Depression. C SSRS Interpretation and Follow Up Plan: CSSRS Interpretation and Follow Up Plan C SSRS Screen documented using SF Y es, R isk Disposition from SF L ow - No Follow Up Plan Required, F ollow Up Plan N o Follow Up Plan required at this time., T imeframe of Screening Anastasia louie.? S creening: Crawford Suicide Severity Rating Scale (LF) D o you want to initiate with S creener form, I nterpretation: L ow Risk, 6 . Suicide Behavior Question: Have you ever done anything,started to do anything, or prepared to end your life? N o, 2. Suicidal Thoughts: Have you actually had any thoughts of killing yourself? N o, 1 . Wish to be : Have you wished you were or wished you could go to sleep and not wake up? N o. Clinician asked clarifying questions regarding thoughts of suicidality, client reported not experiencing any active thoughts or plans since 2014. * Medical History: * Surgical History: * Hospitalization/Major Diagno stic Procedure: * Social History: S ocial Determinants: P RAPARE W hat is your current housing situation? I have housing, A re you worried about losing your housing? Y es, W hat is the highest level of school that you have finished? 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 Check all that apply U tilities,Phone, H as lack of transportation kept you from medical appointments, meetings, work or from getting things needed for daily living? Y es, it has kept me from medical appointments or from getting my medications,?How often do you see or talk to people that you care about and feel close to? (For example: talking to friends on the phone, visiting friends or family, going to jew or club meetings) M ore than 5 times a week, H ow stressed are you? Stress is when someone feels tense, nervous, anxious, or can\t sleep at night because their mind is troubled Q uite a bit, I n the past year have you spent more than 2 nights in a row in a group home, fpc, correction center, or juvenile correctional facility? N o, A re you a refugee? N o, W hat country are you from[place], D o you feel physically and emotionally safe where you currently live? Y es, I n the past year, have you been afraid of your partner or ex-partner? N o, P RAPARE Score: 8. * Medications: Objective: * Vitals: * Examination: M ental Status Exam: ATTENTION AND CONCENTRATION N o deficits. APPEARANCE A ppropriate (wearing clothing issued by [facility].?. ATTITUDE AND BEHAVIOR C ooperative, comfortable. EYE CONTACT G ood. AFFECT C ongruent with reported mood. MOOD E uthymic. INSIGHT G ood. JUDGMENT G ood. Assessment: * Assessment: 1. B ipolar disorder - F31.9 (Primary) 2 . O pioid use disorder - F11.99? Plan: * Treatment: * Procedure Codes: 9 0791 PSYCH DIAGNOSTIC EVALUATION, Modifiers: AJ CHS08 [facility] Service * Follow Up: p rn * * Sign off status: Completed true * Provider: Justin Gar, VETERINARY PHARMACOLOGIST Date: 01/24/2025 Generated for Dre florez/Zain/Mandy on: 01/25/2025 05:39 PM CDT History and [...] all Total Score: 6 Interpretation: Mild Depression Psychiatric Assessment - Current Symptoms Primary concern today , Admitting today for [facility] program Overview of Mental Health Symptoms Hx of anxiety, Bipolar, and ptsd. Some depressive symptoms. History of Psychiatric Hospitalizations none reported at this time. History of Psychiatric and B ehavioral Health Treatment History of some mental health support an d residential substance use treatment. Substance Use History of substance use started substance use around 2014, 3-4 years of sustained sobriety, began use again around 2019. Hx of Withdrawal Reported withdrawal symptoms including nausea, shaking, fidgeting, somatic symptoms, insomnia, cold sweats. Substance of Choice alcohol, fentanyl, m eth Current Use Patterns Reported use of fen tanyl and meth daily since 2019. Alcohol use since 2014, currently 1/5 daily. Screening Crawford Suicide Severity Rating Scale (LF) Do you want to initiate with: Screener form Clinician asked clarifying questions regarding thoughts of suicidality, client reported not experiencing any active thoughts or plans since 2014. Interpretation:: Low Risk 6. Suicide Behavior Question: Have you ever done anything,started to do anything, or prepared to end your life?: No 2. Suicidal Thoughts: Have you actually had any thoughts of killing yourself?: No 1. Wish to be : Have you wished you were or wished you could go to sleep and not wake up?: No Assessment of Social Determinants of Health:: Has A PRAPARE Been Completed In The Past Year? Has a PRAPARE Been Completed In The Past Year?: Yes Was It Completed Today Using SmartForm?: Yes aT For Substance Use Services Who Is Your Primary Care Provider? Do You Have A Primary Care Provider?: Yes Dr. Avila - PCP Date of last physical exam: Phys ical completed as part of admission. Do You Have A Psychiatric Provider? Do You Have A Psychiatric Provider?: No Requested beginning services at [facility] [place] Do You Have Any Other Professional Supports? Do You Have Any Other Professional Supports: No Consent Forms Completed Consent Forms: N one Needed at this time CSSRS Interpretation and Follow Up Plan CSSRS Interpretation and Follow Up Plan CSSRS Screen documented using SF: Yes Risk Disposition from SF: Low - No Follo w Up Plan Required Follow Up Plan: No Follow Up Plan requir ed at this time. Timeframe of Screening: Today Examination Category Sub-Category Detail Notes Category Not es Mental Status Exam ATTENTION AND CONCENTRATION No defi cits APPEARANCE Appropriate (wearing clothing issued by [facility]. ATTITUDE AND BEHAVIOR Cooperative, comfo rtable EYE CONTACT Good AFFECT Congruent with repor cecilia mood MOOD Euthymic INSIGHT Good JUDGMENT Good
--- NOTE | 2025-01-25 17:52 | ECG_ITS ---
Test Date: 2025-01-25 17:54:08 Measurements Intervals [place] Rate: 119 P: 79 OR: 116 QRS: 82 QRSD: 86 T: 55 QT: 314 QTc: 442 Interpretive Statements SINUS TACHYCARDIA WITH SHORT OR INTERVAL ABNORMAL RHYTHM ECG No previous ECG available for comparison Electronically Signed On 01-26-2025 14:14:55 CDT by Mik Trujillo M.D.
--- NOTE | 2025-01-25 19:14 | ED_ITS ---
HPI - Alcohol General Chief Complaint: Alcohol Stated Complaint: fentanyl, alcohol withdrawal Time Seen by Provider: 01/25/25 18:58 Source: patient and RN notes reviewed Mode of arrival: ambulatory Limitations: no limitations History of Present Illness HPI narrative: 29 y/o [facility]. Pt using fentanyl daily and drinking a 1/5th of Whiskey daily prior to rehab, 2 days ago. Pt endorses chills, shakes, CP, SOB, palpitations, GUZMAN, and nausea. Pt denies any vomiting or diarrhea, abd pain, dizziness, SI/HI. Pt states she got a singular dose of Gabapentin from [facility] this am w/o relief of symptoms. Related Data Allergies Allergy/AdvReac Type Severity Reaction Status Date / Time No Known Allergies Allergy Verified 01/25/25 18:53 Review of Systems 2 Review of Systems: CONSTITUTIONAL: Denies fever, chills, or sweats. EYES: Denies visual changes, redness, or discharge. ENT: Denies rhinorrhea, congestion, sore throat, or otalgia. CARDIOVASCULAR: Endorses chest pain, palpitations. Denies edema. RESPIRATORY: Denies cough or dyspnea. GASTROINTESTINAL: Endorses nausea. Denies abdominal pain, vomiting, or diarrhea. GENITOURINARY: Denies dysuria or hematuria. SKIN: Denies rash or itching. MUSCULOSKELETAL: Denies back pain, joint pain, or myalgia. NEUROLOGIC: Denies headache, numbness, or weakness. PSYCHIATRIC: Endorses anxiety. Denies depression. Denies SI/HI Exam 2 Narrative: GENERAL: Well-appearing, well-nourished, and in no acute distress. HEAD: Normocephalic, atraumatic. EYES: PERRLA and EOMI. ENT: Nares clear, no rhinorrhea or epistaxis. Mucous membranes moist. NECK: Supple. CHEST: Clear to auscultation. No respiratory distress. HEART: Regular rate and rhythm. No murmur heard. Normal peripheral pulses. ABDOMEN: Soft, nontender, nondistended, normal active bowel sounds. EXTREMITIES: Normal range of motion. No edema. SKIN: Warm, dry, no rash. NEURO: No focal deficits. Alert and oriented x3. PSYCH: Appears anxious. Denies SI/HI Course Vital Signs Vital signs: Vital Signs Temperature 36.4 C 01/25/25 17:49 Pulse Rate 125 H 01/25/25 17:49 Respiratory Rate 18 01/25/25 17:49 Blood Pressure 108/67 01/25/25 17:49 Pulse Oximetry 100 01/25/25 17:49 Temperature 36.4 C 01/25/25 17:49 Pulse Rate 76 01/25/25 18:47 Respiratory Rate 20 01/25/25 18:47 Blood Pressure 99/57 L 01/25/25 18:47 Pulse Oximetry 100 01/25/25 18:47 Oxygen Delivery Room Air 01/25/25 18:47 MDM - Alcohol MDM Narrative Medical decision making narrative: HPI: 29 y/o female pt to the ED from [facility] for s/s of withdrawal. Pt using fentanyl daily and drinking a 1/5th of Whiskey daily prior to rehab, 2 days ago. Pt endorses chills, shakes, CP, SOB, palpitations, GUZMAN, and nausea. Pt denies any vomiting or diarrhea, abd pain, dizziness, SI/HI. Pt states she got a singular dose of Gabapentin from [facility] this am w/o relief of symptoms. My Plan Labs Ordered: CBC, CMP, U/A, Urine Imaging Ordered: None Medications Ordered: Hydroxyzine 50mg IM, Tylenol, Zofran 4mg IV, 0.9NS bolus, Phenobarbital 260mg IVP Results: CBC and CMP both unremarkable Diagnosis: Risks: CIWA score 8-9 Consults: Patient given the listed meds and endorses relief of symptoms. Patient asleep when I went into the room for re-evaluation, states she still has some anxiety. Her heart rate on monitor is sinus with a rate of 88, blood pressure is 113/86 at 10:40 p.m. Differential Diagnosis Differential diagnosis: Likely alcohol withdrawal delirium, hypomagnesemia and alcohol withdrawal syndrome Medical Records Attestation: I reviewed the patient's medical records. Lab Data Attestation: I reviewed the patient's lab results. 01/25/25 19:31 01/25/25 19:31 Labs: Lab Results 01/25/25 Range/Units 19:31 WBC 7.0 (4.5-10.0) K/mm3 RBC 4.84 (4.2-5.4) M/mm3 Hgb 14.5 (12.0-15.0) g/dL Hct 42.3 (37.0-47.0) % MCV 87.4 (80-100) fl MCH 30.0 (26-34) pg MCHC 34.3 (32-36) g/dl RDW 13.1 (11.5-14.5) % Plt Count 255 (150-375) k/mm3 MPV 9.4 (7.4-10.4) fl Immature Gran % (Auto) 0.1 (0-0.5) % Neut % (Auto) 72.3 (45.5-73.1) % Lymph % (Auto) 18.7 (18.3-44.2) % [place] % (Auto) 5.3 (2.6-8.5) % Eos % (Auto) 3.0 (0-4.4) % Baso % (Auto) 0.6 (0.2-1.2) % Lymph # (Auto) 1.31 (0.9-3.2) K/mm3 [place] # (Auto) 0.4 (0.1-0.6) K/mm3 Eos # (Auto) 0.2 (0-0.3) K/mm3 Baso # (Auto) 0.0 (0.0-0.1) K/mm3 Abs Immat Gran (auto) 0.01 (0.00-0.031) K/mm3 Absolute Neuts (auto) 5.1 (1.3-6.7) K/mm3 Absolute Nucleated RBC 0.000 (0.0-0.012) K/mm3 Nucleated RBC % 0.0 (0.0-0.2) % Sodium 136 L (137-145) mmol/L Potassium 4.2 (3.4-5.0) mmol/L Chloride 102 (98-107) mmol/L Carbon Dioxide 27 (22-30) mmol/L Anion Gap 7 (4-12) mmol/L BUN 11 (7-17) mg/dL Creatinine 0.68 L (0.7-1.0) mg/dL Estim Creat Clear Calc 85 ml/min Estimated GFR > 60 (59 - ) Glucose 139 H (65-110) mg/dL Calcium 9.4 (8.4-10.2) mg/dL Magnesium 1.8 (1.6-2.3) mg/dL Total Bilirubin 0.7 (0.2-1.3) mg/dL AST 82 H (14-36) U/L ALT 91 H (6-35) U/L Alkaline Phosphatase 72 (38-126) U/L Total Protein 8.1 (6.3-8.2) g/dL Albumin 4.1 (3.5-5.1) g/dL ECG Data EKG #1: Attestation: I personally reviewed and interpreted this ECG as follows: ECG completion date: 01/25/25 ECG completion time: 17:54 Prior ECG tracings: available for review EKG Interpretation: tachycardia, sinus rhythm, no ectopy, no ST changes, normal QRS and normal QT Discharge Plan Discharge Clinical Impression: Opioid withdrawal, Anxiety Alcohol withdrawal syndrome Qualifiers: Complication of substance-induced condition: uncomplicated Qualified Code(s): F 10.930 - Alcohol use, unspecified with withdrawal, uncomplicated Patient Disposition: Inpatient Rehab Facility Condition: Stable Instructions: Alcohol Withdrawal (ED), Opioid Withdrawal (ED), Anxiety (ED) Additional Instructions: Please return to the ER with any worsening symptoms. ?Follow-up with primary care provider as soon as possible. ?Take all medications as prescribed, including regularly scheduled medications. Patient Language: Turkmen Prescriptions: New ondansetron 4 mg tablet,disintegrating 4 mg PO Q8H PRN (Reason: nausea and vomiting) Qty: 30 0RF hydroxyzine HCl 50 mg tablet 50 mg PO QID PRN (Reason: anxiety) Qty: 30 0RF Follow-up/Referrals: PHYSICIAN,HUMAN SERVICE SPECIALIST [Primary Care Provider] - Stand Alone Forms: Group Home Discharge
--- OUTSIDE RECORDS SUMMARY | 2025-01-25 19:37 | XMS_ITS | Clinical Summary ---
Author Organization [facility] Address [address] [place] [address] Care Team Providers Care Digital Technician Name Role Phone Wild Avila MD Primary Care Provider [phone] Allergies No known active allergies Family History [...] complete this topic Insurance NOHEMY Care Teams Digital Technician Relationship Specialty Start Date End [place] [address] PCP - General FAMILY PRACTICE 10/25/22
--- OUTSIDE RECORDS SUMMARY | 2025-01-25 19:37 | XMS_ITS | Clinical Summary ---
Author Organization [facility] Address [address] [place] [address] Care Team Providers Care Wrist Closer Name Role Phone Wild Avila MD Primary Care Provider [phone] Source Comments [facility],non-owned Affiliates and Associated Physician Practices is amultiple site organization consisting of ambulatory clinics and hospital sitesin [place], [place], [place] and [place]. This disclosure is being madepursuant to the Care Everywhere program and may not contain all information available regarding this patient. Last updated 18.[facility] Allergies No known active allergies Medications * [...] patient's age to complete this topic Insurance [facility] Care Teams Wrist Closer Relationship Specialty Start Date End Date Wild Avila MD [address] [place] [address] PCP - General Family Medicine 11/08/23
--- OUTSIDE RECORDS SUMMARY | 2025-01-25 19:37 | XMS_ITS | Clinical Summary ---
Author Organization [facility] Address [address] [place] [address] Phone Care Team Providers Care Translator Name Role Phone Wild Avila MD Primary Care Provider [phone] Allergies No known active allergies Medications * [...] naloxone HCl (Narcan) 4 MG/0.1ML Liquid 1 Denbo by Nasal route as needed (opioid overdose). [...] = 0.6 oz pu re alcohol) Daily Simplify Utilities Answer Date Recorded In the past 12 months has th e [employer], gas, oil, or water [employer] threatened to shut off services in your home? Patient declined 10/03/2024 Social Connection and Isolation Panel Answer Date Recorded In a typical week, how many times do you talk on the phone with family, friends, or neighbors? Patient declined 10/03/2024 How often do you get togethe r with friends or relatives? Patient declined 10/03/2024 How often do you attend confucianist or sikhism serv ices? Patient declined 10/03/2024 Do you belong to any clubs o r organizations such as confucianist groups, unions, fraternal or athletic groups, or [...] Answer Date Recorded PHQ-2 Score 1 05/23/2019 [facility] Occupat ional Health - Occupational Stress [...] place to sleep or slept in a long term (including now)? Patient declined 09/25/2023 Housing Stability [...] any time in the past 12 m [facility], were you homeless or living in a long term (including now)? Patient declined 10/03/2024 Sexually Active [...] measures to stabilize the patient. Care Teams Translator Relationship Specialty Start Date End Date [place] [place] [address] PCP - General Family Medicine 11/18/21
--- OUTSIDE RECORDS SUMMARY | 2025-01-25 19:37 | XMS_ITS | Encounter Summary ---
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 documented as of this encounter Visit Diagnoses Not on filedocumented in this encounter Care Teams Fax Machine Operator Relationship Specialty Start Date End [place] [address] PCP - General Family Medicine 10/05/20 Lynda Perez Wood Machine Carver Addiction Medicine 05/11/20 Lynda Perez Gear Cutting Machine Operator Addiction Medicine 06/23/20 Jessica Her Wood Machine Carver Addiction Medicine 10/15/20 documented as of this encounter
--- OUTSIDE RECORDS SUMMARY | 2025-01-25 19:37 | XMS_ITS | Encounter Summary ---
Author Organization [facility] Healthcare Address [address] [place] [address] Care Team Providers Care Cup Trimming Machine Operator Name Role Phone Lynda Perez Unavailable Unavailable Lynda Perez Unavailable Unavailable Wild Avila MD Primary Care Provider [phone] Jessica Her Unavailable Unavailable Encounter Details Date Type Department Care Team (Late st Contact Info) Description 01/16/2025 11:30 AM CDT Hospital Encounter [facility] Medical Care [address] [place] [address] Paula Morris MD [address] [place] [id number] Social History Tobacco Use Types Packs/Day Years Used Date Smoking Tobacco: Every Day Cigarettes 0.9 10.7 Started: 05/2014 Smokeless Tobacco: Never Alcohol Use Standard Drinks/Week Comments Yes 0 (1 standard drink = 0.6 oz pur e alcohol) a pint whiskey [facility] Utilities Answer Date Recorded In the past 12 months has [employer], gas, oil, or water company threatened [...] week 06/30/2023 How often do you attend [facility] or [facility] services? Never 06/30/2023 Do you belong to any clubs o r organizations such as hoahaoism groups, unions, fraternal or athletic groups, or [...] place to sleep or slept in a assisted (including now)? 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 documented as of this encounter Visit Diagnoses Not on filedocumented in this encounter Care Teams Cup Trimming Machine Operator Relationship Specialty Start Date End Date Wild Avila MD [address] [place] [address] PCP - General Family Medicine 10/05/20 Lynda Perez Drying Room Operator Addiction Medicine 05/11/20 Lynda Perez Maintenance Department Manager Addiction Medicine 06/23/20 Jessica Her Drying Room Operator Addiction Medicine 10/15/20 documented as of this encounter
--- OUTSIDE RECORDS SUMMARY | 2025-01-25 19:37 | XMS_ITS | Clinical Summary ---
Author Organization [facility] Address [address] [place] [address] Care Team Providers Care Escort Car Driver Name Role Phone Lynda Perez Unavailable Unavailable Lynda Perez Unavailable Unavailable Wild Avila MD Primary Care Provider [phone] Jessica Her Unavailable Unavailable Allergies No known [...] 12/22/2020 Assessment & Plan (07/18/2024 12:51 PM MUNITIONS HANDLER SUPERVISOR): Has been improving, decreased use, decreased ability [...] disorders Assessment & Plan (08/02/2021 4:41 PM MUNITIONS HANDLER SUPERVISOR): Stable improving; patient reports that she is [...] 10/19/2020 Assessment & Plan (07/18/2024 12:51 PM MUNITIONS HANDLER SUPERVISOR): Patient reports anxiety and depression are present never fully goes away, has been worsening, and varies day-to-day Can increase sertraline to 100 mg daily, continue Seroquel 150 mg nightly Assessment & Plan (01/12/2022 4:57 PM CDT): Not well controlled, patient reports mood continues to be up and down Continue Lexapro 20 mg daily; hydroxyzine 25 mg p.r.n. for anxiety Encouraged patient to gauge ASSISTANT CORPORATE SECRETARY for counseling Assessment & Plan (08/02/2021 4:41 PM MUNITIONS HANDLER SUPERVISOR): Not well controlled, patient continues to have [...] 09/17/2019 Assessment & Plan (07/18/2024 12:51 PM MUNITIONS HANDLER SUPERVISOR): Patient has change in environment, living [place] with boyfriend; has decreased symptoms when in [place], some difficulty when returns to the area [...] b.i.d.; encouraged patient to engage with peer operating room specialist or individual counseling to help with long-term treatment goals Assessment & Plan (01/27/2022 4:46 PM CDT): Stable, improving; patient reports no use of any opioids in over a month Continue naltrexone monthly injections Patient is due in approximately 2 weeks Encouraged patient to do to engage with counseling through peer operating room specialist Encouraged patient to engage with mutual support groups Assessment & Plan (01/12/2022 4:56 PM CDT): Able, improving; patient reports no use of fentanyl in the past 2 weeks Patient is interested giving Vivitrol injection today Provide Vivitrol today; encouraged patient to follow-up in 2 weeks for evaluation and response to therapy Assessment & Plan (08/02/2021 4:40 PM MUNITIONS HANDLER SUPERVISOR): Not well control, continues to use opioids; [...] NA meetings as well as IOP at [place] [facility] Patient is instructed Vivitrol, will give tomorrow [...] D's Patient is currently in IOP at [facility] Patient desires Adderall, will order Vivitrol medication today with plan to administer in 1 week Sinus tachycardia 09/17/2019 Assessment & Plan (08/02/2021 4:42 PM MUNITIONS HANDLER SUPERVISOR): Continues to have episodes tachycardia, palpitations as [...] Vivitrol Encouraged patient to engage with peer operating room specialist for individual counseling Assessment & Plan (01/12/2022 4:57 PM CDT): 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 continues to use methamphetamine; patient is engaging with outpatient IOP a chest Encouraged patient to engage with ASSISTANT CORPORATE SECRETARY as well as peer operating room specialist to help with further support and [...] Type Department Care Team Description 01/19/2025 Documentation [facility] Warm Hand Off Program [address] [place], [place] [phone] Kailey Caro 01/18/2025 2:22 PM CDT - 01/20/2025 4:27 PM CDT Hospital Encounter [facility] IMU [address] [place] [address] Louis Timmons MD Sargsyan, Narine, MD Fasick, Victoria Rose, Polysubstance abuse (HCC) (Primary Dx); Alcohol use Discharge Disposition: Left Against Medical Advice 01/16/2025 11:30 AM CDT Hospital Encounter [facility] Medical Care [address] [place] [address] Paula Morris MD 01/13/2025 [facility] Initial Eligibility [facility] Warm Hand Off Program [address] [place], [place] [phone] Milton Randall from Last 3 Months Immunizations [...] - Hx Other Medical 1999 tympanoplasty; Comments: [facility] 10/07/2014 - Fibroid uterus SIRS (systemic inflammatory response syndrome) ([facility]) 09/17/2019 Family History Medical History Relation Name [...] oz pur e alcohol) a [employer] [facility] Utilities Answer Date Recorded In the past 12 months has [employer], gas, oil, or water [email or web address] threatened to shut off services in your [...] often do you attend chur ch or hoahaoism services? Never 06/30/2023 Do you belong to any clubs o r organizations such as mandaen groups, unions, fraternal or athletic groups, or [...] place to sleep or slept in a senior living (including now)? Yes 06/30/2023 Personal Safety Answer [...] on file Legal Sex Female 3:19 PM MUNITIONS HANDLER SUPERVISOR Gender Identity Female 11/09/2020 10:56 AM CDT [...] Giraldo Note: I am attending outpatient at [place] and going to meetings. Procedures Procedure Name [...] DO LAB BLOOD ORDERABLES Fin al Result [facility] [address] [facility] Department [place] [address] * (ABNORMAL) Comprehensive metabolic panel (01/19/2025 7:49 AM CDT) Sodium 131(L) 135 - 145 mmol/L [facility] Potassium, pl 3.6 3.3 - 4.9 mmol/L [facility] Chloride 98 97 - 110 mmol/L [facility]) CO2 23 22 - 32 mmol/L [facility]) Anion gap 13 2 - 15 mmol/L [facility]) BUN 9 6 - 25 mg/dL [facility] Creatinine 0.70 0.60 - 1.10 mg/dL [facility] Glucose 102 70 - 199 mg/dL [facility] ([place]) Comment: Interpretive Data Fasting glucose [...] Fin al Result [facility] ([place] 1 [facility] Department of Laboratories [place], [place] [phone] * (ABNORMAL) Differential, auto (01/19/2025 6:32 AM [...] 2017. Basophil pct 0.9 % [facility] ([place]) Comment: Interpretive Data Percent cell count reference ranges are not reported, since discordance with absolute values may lead to misinterpretation of CBC data. Current Interpretive Data was last revised on 2017. Blood 01/19/2025 6:32 AM CDT 01/19/2025 6:41 AM CDT us Kalie [facility] LAB BLOOD ORDERABLES Final Resu lt [facility] ([place]) 1 [facility] Department [place] [address] * CBC with auto differential (01/19/2025 6:32 [...] 29.6 27.1 - 33.3 pg [facility] ([place]) MCHC 33.4 32.3 - 35.7 g/dL [facility] ([place] RDW CV 13.0 11.1 - 14.9 % [facility] RDW SD 42.2 35.7 - 48.1 fL [facility] NRBC abs 0.00 0.00 - 0.01 K/cumm [facility] ([place]) Blood 01/19/2025 6:32 AM CDT 01/19/2025 6:41 AM CDT us Louis Timmons MD LAB BLOOD ORDERABLES Final Resu lt [facility] ([place]) 1 [facility] Department [place] [address] * Ethanol (01/18/2025 6:38 PM CDT) Ethanol [...] Final Resu lt [facility] ([place]) 1 [facility] Department [place] [address] * eGFR (01/18/2025 3:07 PM CDT) Pathologist [facility] eGFR >90 >=60 mL/min/1. 73 m2 Comment: [...] Final Resu lt [facility] ([place]) 1 [facility] Department [place] [address] * (ABNORMAL) Differential, auto (01/18/2025 3:07 PM CDT) Pathologist [facility] Neutrophil abs 9.35(H) 1.50 - 6.50 K/cumm [...] Final Resu lt [facility] ([place]) 1 [facility] Department [place] [address] * (ABNORMAL) CBC with auto differential (01/18/2025 [...] [place] LAB BLOOD ORDERABLES Final Resu lt [facility] 1 [facility] Department [place] [address] * (ABNORMAL) Comprehensive metabolic panel (01/18/2025 3:07 [...] [place] LAB BLOOD ORDERABLES Final Resu lt [facility] 1 [facility] Department [place] [address] * (ABNORMAL) Drugs of Abuse Screen, Urine [...] URINE ORDERABLES Final Resu lt [facility] ([place] 1 [facility] Department [place] [address] * (ABNORMAL) Hepatitis panel, acute (10/10/2022 8:33 AM CDT) Hep A IgM Nonreactive Nonreactive [facility] Comment: Interpretive Data: If Hep A IgM Ab is reported as Equivocal, a new sample should be drawn in two weeks for testing. Current interpretive data was last revised on 19. Hep B core IgM Nonreactive Nonreactive [facility] Comment: Interpretive Data If HepB Core IgM Ab is reported as Equivocal, a new sample should be drawn in two weeks for testing. Current interpretive data was last revised on 19. Hep C Ab Reactive(A) Nonreactive [facility] Comment: Interpretive Data Nonreactive: Antibodies to [...] revised on 2019. HepBsAg Nonreactive Nonreactive [facility] Blood 10/10/2022 8:33 AM CDT 10/10/2022 12:24 PM CDT Vale Perez MD LAB MICROBIOLOGY - GENERAL ORDER GABBY Final Result [facility] [address] [facility] [place] [address] from Last 3 Months or Most Recently Relevant to Health Maintenance Insurance [facility] Member Subscriber Plan / Payer (Ef fective 2018-Present) Name:Tiarra Denny Relation to Subscriber:Self Name:TIARRA DENNY Payer ID:[id number] (NAIC) Type:MANAGED CARE OTHER Address: [address] [facility] Advance Directives For more information, please contact: [phone] * Full Code (Latest Code Status on [...] 11:48 PM 09/19/2019 9:32 PM Care Teams Escort Car Driver Relationship Specialty Start Date End Date [place] [address] PCP - General Family Medicine 10/05/20 Lynda Perez Market Superintendent Addiction Medicine 05/11/20 Lynda Perez Dispatcher Clerk Addiction Medicine 06/23/20 Jessica Her Market Superintendent Addiction Medicine 10/15/20
--- OUTSIDE RECORDS SUMMARY | 2025-01-25 19:37 | XMS_ITS | Referral Summary ---
Author Organization [facility] Address [address] [place] [address] Care Team Providers Care Science Specialist Name Role Phone Lynda Perez Unavailable Unavailable Lynda Perez Unavailable Unavailable Wild Avila MD Primary Care Provider [phone] Jessica Her Unavailable Unavailable Encounters Date Type Department Care Team Description 01/18/2025 2:22 PM CDT - 01/20/2025 4:27 PM CDT Hospital Encounter [facility] IMU [address] [place] [address] Louis Timmons MD Sargsyan, Narine, MD Fasick, Victoria Rose, DO Polysubstance abuse (HCC) (Primary Dx); Alcohol use Discharge Disposition: Left Against Medical Advice 01/19/2025 Documentation [facility] Warm Hand Off Program [address] [place], [place] [phone] Kailey Caro 01/16/2025 11:30 AM CDT Hospital Encounter [facility] Medical Care [address] [place] [address] Paula Morris MD 01/13/2025 [facility] Initial Eligibility [facility] Warm Hand Off Program [address] [place], [place] [phone] Milton Randall from Last 3 Months Allergies [...] 12/22/2020 Assessment & Plan (07/18/2024 12:51 PM SENIOR SUSTAINABILITY ADVISOR): Has been improving, decreased use, decreased ability [...] disorders Assessment & Plan (08/02/2021 4:41 PM SENIOR SUSTAINABILITY ADVISOR): Stable improving; patient reports that she is [...] 10/19/2020 Assessment & Plan (07/18/2024 12:51 PM SENIOR SUSTAINABILITY ADVISOR): Patient reports anxiety and depression are present never fully goes away, has been worsening, and varies day-to-day Can increase sertraline to 100 mg daily, continue Seroquel 150 mg nightly Assessment & Plan (01/12/2022 4:57 PM CDT): Not well controlled, patient reports mood continues to be up and down Continue Lexapro 20 mg daily; hydroxyzine 25 mg p.r.n. for anxiety Encouraged patient to gauge INDUCTION BRAZER for counseling Assessment & Plan (08/02/2021 4:41 PM SENIOR SUSTAINABILITY ADVISOR): Not well controlled, patient continues to have [...] 09/17/2019 Assessment & Plan (07/18/2024 12:51 PM SENIOR SUSTAINABILITY ADVISOR): Patient has change in environment, living [place] with boyfriend; has decreased symptoms when in [place], some difficulty when returns to the area [...] b.i.d.; encouraged patient to engage with peer tin recovery worker or individual counseling to help with long-term treatment goals Assessment & Plan (01/27/2022 4:46 PM CDT): Stable, improving; patient reports no use of any opioids in over a month Continue naltrexone monthly injections Patient is due in approximately 2 weeks Encouraged patient to do to engage with counseling through peer tin recovery worker Encouraged patient to engage with mutual support groups Assessment & Plan (01/12/2022 4:56 PM CDT): Able, improving; patient reports no use of fentanyl in the past 2 weeks Patient is interested giving Vivitrol injection today Provide Vivitrol today; encouraged patient to follow-up in 2 weeks for evaluation and response to therapy Assessment & Plan (08/02/2021 4:40 PM SENIOR SUSTAINABILITY ADVISOR): Not well control, continues to use opioids; [...] NA meetings as well as IOP at [facility] [place] Patient is instructed Vivitrol, will give tomorrow [...] D's Patient is currently in IOP at [facility] [place] Patient desires Adderall, will order Vivitrol medication today with plan to administer in 1 week Sinus tachycardia 09/17/2019 Assessment & Plan (08/02/2021 4:42 PM SENIOR SUSTAINABILITY ADVISOR): Continues to have episodes tachycardia, palpitations as [...] Vivitrol Encouraged patient to engage with peer tin recovery worker for individual counseling Assessment & Plan (01/12/2022 4:57 PM CDT): 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 continues to use methamphetamine; patient is engaging with outpatient IOP a chest Encouraged patient to engage with INDUCTION BRAZER as well as peer tin recovery worker to help with further support and long-term [...] oz pur e alcohol) a warner whiskdilcia [facility] Utilities Answer Date Recorded In [...] often do you attend chur ch or sabianist services? Never 06/30/2023 Do you belong to any clubs o r organizations such as mosque groups, unions, fraternal or athletic groups, or [...] place to sleep or slept in a usp (including now)? Yes 06/30/2023 Personal Safety Answer [...] on file Legal Sex Female 3:19 PM SENIOR SUSTAINABILITY ADVISOR Gender Identity Female 11/09/2020 10:56 AM CDT [...] Giraldo Note: I am attending outpatient at [facility] and going to meetings. Procedures Procedure Name [...] DO LAB BLOOD ORDERABLES Fin al Result [facility] ([facility] 1 [facility] [place] [address] * (ABNORMAL) Comprehensive metabolic panel [...] DO LAB BLOOD ORDERABLES Fin al Result [facility] 1 [facility] [place] [address] * (ABNORMAL) Differential, auto (01/19/2025 6:32 AM [...] BLOOD ORDERABLES Final Resu lt [facility] CORTES ([place]) 1 [facility] [place] [address] * CBC with auto differential (01/19/2025 6:32 AM CDT) WBC 6.71 3.80 - 9.90 K/cumm Hgb 12.7 11.9 - 15.5 g/dL [facility] Hct 38.0 35.6 - 45.5 % [facility] ([place] Plt 210 150 - 400 K/cumm [facility] ([place]) MPV 9.9 9.1 - 12.3 fL [facility] ([place]) RBC 4.29 3.90 - 5.20 M/cumm [facility] ([place]) MCV 88.6 81.3 - 96.4 fL [facility] ([place]) MCH 29.6 27.1 - 33.3 pg [facility] ([place]) MCHC 33.4 32.3 - 35.7 g/dL [facility] ([place] RDW CV 13.0 11.1 - 14.9 % [facility] ([place] RDW SD 42.2 35.7 - 48.1 fL [facility] ([place] NRBC abs 0.00 0.00 - 0.01 K/cumm [facility] ([place] Blood 01/19/2025 6:32 AM CDT 01/19/2025 6:41 AM CDT us Louis Timmons MD LAB BLOOD ORDERABLES Final Resu lt [facility] KOLB ([place]) 1 [facility] [place] [address] * Ethanol (01/18/2025 6:38 PM CDT) Ethanol <10 <=10 mg/dL [facility] ([facility]) Comment: Interpretive Data Legal limit of intoxication > or = 80 mg/dL Levels > or = 400 mg/dL are potentially TOXIC. Current interpretive data was last revised on 2018. Blood 01/18/2025 6:38 PM CDT 01/18/2025 6:42 PM CDT Kalie BATISTA LAB BLOOD ORDERABLES Final Resu lt Performing Organization Address City/[facility] Co de Phone Number LORENZO SainzYVONNE) 1 [facility] [place] [address] * eGFR (01/18/2025 3:07 PM CDT) eGFR [...] ORDERABLES Final Resu lt Performing Organization Address City/[facility]/ZIP Co de Phone Number [facility] KOLB ([place]) 1 [facility] [place] [address] * (ABNORMAL) Differential, auto (01/18/2025 3:07 PM [...] ([place]NE) [address] [place] [address] * (ABNORMAL) CBC with auto differential (01/18/2025 3:07 PM CDT) [facility] WBC 12.26(H) 3.80 - 9.90 K/cumm Hgb [...] Final Resu lt [facility] ([place]) 1 [facility] [place] [address] * (ABNORMAL) Comprehensive metabolic panel (01/18/2025 3:07 PM CDT) [facility] Sodium 141 135 - 145 mmol/L [facility] [...] Final Resu lt [facility] ([place]) 1 [facility] [place] [address] * (ABNORMAL) Drugs of Abuse [...] presumptive (A) CutOff 5 ng/mL [facility] ([facility]) Comment: Interpretive Data - Fentanyl: Samples containing [...] LAB URINE ORDERABLES Final Resu lt [facility] ([place]) 1 [facility] [place] [address] * (ABNORMAL) Hepatitis panel, acute (10/10/2022 8:33 AM CDT) Hep A IgM Nonreactive Nonreactive [facility] Comment: Interpretive Data: If Hep A IgM Ab is reported as Equivocal, a new sample should be drawn in two weeks for testing. Current interpretive data was last revised on 19. Hep B core IgM Nonreactive Nonreactive [facility] Comment: Interpretive Data If HepB Core IgM Ab is reported as Equivocal, a new sample should be drawn in two weeks for testing. Current interpretive data was last revised on 19. Hep C Ab Reactive(A) Nonreactive [facility] Comment: Interpretive Data Nonreactive: Antibodies to HCV [...] last revised on 2019. HepBsAg Nonreactive Nonreactive [facility] Blood 10/10/2022 8:33 AM CDT 10/10/2022 12:24 PM CDT Vale Perez MD LAB MICROBIOLOGY - GENERAL ORDER GABBY Final Result Performing Organization Address [facility] de Phone Number [facility] [address] [facility] [place] [address] from Last 3 Months or Most Recently Relevant to Health Maintenance Insurance [facility] Member Subscriber Plan / Payer (Ef fective 2018-Present) Name:Tiarra Denny Relation to Subscriber:Self Name:TIARRA DENNY Payer ID:[id number] ([facility]) Type:MANAGED CARE OTHER Address: [address] [facility] Advance Directives For more information, please contact: [phone] * Full Code (Latest Code Status on [...] 11:48 PM 09/19/2019 9:32 PM Care Teams Science Specialist Relationship Specialty Start Date End Date Wild [place] [address] PCP - General Family Medicine 10/05/20 Lynda Perez Design Printer Balloon Addiction Medicine 05/11/20 Lynda Perez Skimmer Scoop Operator Addiction Medicine 06/23/20 Jessica Her Design Printer Balloon Addiction Medicine 10/15/20
[2025-01-25 19:42] LABS: Hematocrit 42.3 % (37.0-47.0); Hemoglobin 14.5 g/dL (12.0-15.0); Immature Granulocyte Percent A 0.1 % (0-0.5); Lymphocytes Absolute Auto 1.31 K/mm3 (0.9-3.2); Mean Corpuscular HGB Conc 34.3 g/dl (32-36); Mean Corpuscular Hemoglobin 30.0 pg (26-34); Mean Corpuscular Volume 87.4 fl (80-100); Nucleated Red Blood Cells Absolute Auto 0.000 K/mm3 (0.0-0.012); Nucleated Red Blood Cells Perc 0.0 % (0.0-0.2); Platelet Count Result 255 k/mm3 (150-375); Red Blood Count 4.84 M/mm3 (4.2-5.4); White Blood Count 7.0 K/mm3 (4.5-10.0)
[2025-01-25 19:58] LABS: Alanine Aminotransferase 91 U/L (6-35); Albumin Level 4.1 g/dL (3.5-5.1); Alkaline Phosphatase 72 U/L (38-126); Anion Gap 7 mmol/L (4-12); Aspartate Amino Transferase 82 U/L (14-36); Bilirubin,Total 0.7 mg/dL (0.2-1.3); Blood Urea Nitrogen 11 mg/dL (7-17); Calcium 9.4 mg/dL (8.4-10.2); Carbon Dioxide 27 mmol/L (22-30); Chloride 102 mmol/L (98-107); Estimated CRCL calculation 85 ml/min; Estimated Glomerular Filt Rate > 60; Glucose 139 mg/dL (65-110); Magnesium 1.8 mg/dL (1.6-2.3); Potassium 4.2 mmol/L (3.4-5.0); Sodium 136 mmol/L (137-145); Total Protein 8.1 g/dL (6.3-8.2)
[2025-01-25] MEDS: ACETAMINOPHEN 500 MG TABLET 1000 MG PO (20:48)
[2025-01-25] MEDS: SODIUM CHLORIDE 0.9% IV 1,000 ML 999 ML IV CONT (20:49)
[2025-01-25] MEDS: ONDANSETRON INJ 4 MG/2 ML VIAL IV PUSH (20:50)
[2025-01-25] MEDS: PHENobarbitaL sodium (*CRX) 130 MG/ML VIAL 260 MG IV PUSH (20:51)
--- NOTE | 2025-01-25 23:05 | PC.NURSE ---
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
--- NOTE | 2025-01-25 23:42 | PC.NURSE ---
Spoke with [facility] nurse and gave report and setup up transport for Pt transport
[2025-01-26 00:52] VITALS: BP 109/75; PULSE 79; RESP 20; O2SAT 100
== END 2025-01-26 00:54 | disposition home or self-care (01) ==
PROVIDERS: Emergency Provider Registered Nurse Emergency
DX: F11.23 Opioid dependence with withdrawal (principal); F10.930 Alcohol use, unspecified with withdrawal, uncomplicated; F41.9 Anxiety disorder, unspecified; R07.9 Chest pain, unspecified; R06.02 Shortness of breath
CPT/HCPCS: 36415; 80053; 83735; 85025; 93005; 96361; 96374; 96375; 99284; A9270; J2405; J2560; J3410; J7030